=== PATIENT | female | born 1970 | race Caucasian/White ===

== ENCOUNTER 2020-01-30 08:14 | Outpatient (REF) | payer OTHER, SELFPAY | END 2020-01-30 08:15 | disposition home or self-care (01) | LOC: HO.SCI 08:14 | DX: Z13.89 Encounter for screening for other disorder (principal) ==

== ENCOUNTER → 2020-04-02 11:56 | Outpatient (BNVA) | payer OTHER, SELFPAY | PROVIDERS: PCP Registered Nurse; Visit Provider Physician Assistant | DX: Z76.89 Persons encountering health services in other specified circumstances (principal) ==

== ENCOUNTER 2020-05-02 08:00 | Day surgery (SDC) | payer OTHER, SELFPAY ==
[2020-04-28 13:02] VITALS: BMI 28.2
--- NOTE | 2020-05-01 09:09 | P.CONAN_ITS ---
Documented by User: Sigrid Avila 05/01/20 09:11 HPI - Anesthesia Eval Consult details Narrative: 50yo F for Colonoscopy [facility] Past Medical History Medical History DVT (deep venous thrombosis) Family history of adverse response to anesthesia in father Family History Family History Unknown No problems noted. Surgical History Surgical History Hx of shoulder surgery No significant past surgical history Social History Social History Household Members: Spouse Are you a primary daycare worker to a significant other at home: No Do you presently have visiting nurse or other home services: No Alcohol intake: never Smoking Status: Never smoker Use of substances other than those prescribed or required for medical reasons: No Have you been hit, kicked, punched, or otherwise hurt by someone within the past year? If so, by whom?: No Advance Directives: No Advance Directives Information Provided: No Advance Directives on File: No Recently lost weight without trying: No Current occupational status: unemployed Meds Allergies Allergy/AdvReac Type Severity Reaction Status Date / Time No Known Allergies Allergy Verified 05/02/20 08:13 Home Medications Medication Instructions Recorded Confirmed Type aspirin 81 mg tablet,delayed 81 mg PO DAILY 04/02/20 04/28/20 History release Exam Exam Date and Time: May 01, 2020 0909 Height,Weight and Vital Signs: Height 5 ft 5 in Weight 77 kg Assessment and Plan Assessment Anesthesia Assessment: Chart Reviewed Documented by User: Sally Fuentes CRNA 05/02/20 08:49 [facility] Past Medical History Medical History DVT (deep venous thrombosis) Family history of adverse response to anesthesia in father Family History Family History Unknown No problems noted. Surgical History Surgical History Hx of shoulder surgery No significant past surgical history Social History Social History Household Members: Spouse Are you a primary daycare worker to a significant other at home: No Do you presently have visiting nurse or other home services: No Alcohol intake: never Smoking Status: Never smoker Use of substances other than those prescribed or required for medical reasons: No Have you been hit, kicked, punched, or otherwise hurt by someone within the past year? If so, by whom?: No Advance Directives: No Advance Directives Information Provided: No Advance Directives on File: No Recently lost weight without trying: No Current occupational status: unemployed Meds Allergies Allergy/AdvReac Type Severity Reaction Status Date / Time No Known Allergies Allergy Verified 05/02/20 08:13 Home Medications Medication Instructions Recorded Confirmed Type aspirin 81 mg tablet,delayed 81 mg PO DAILY 04/02/20 04/28/20 History release Exam Exam Date and Time: Vital Signs Temperature 97.4 F 05/02/20 08:26 Pulse Rate 74 05/02/20 08:26 Respiratory Rate 16 05/02/20 08:26 Blood Pressure 134/80 05/02/20 08:26 Pulse Oximetry 99 05/02/20 08:26 Temperature 97.4 F 05/02/20 08:26 Pulse Rate 74 05/02/20 08:26 Respiratory Rate 16 05/02/20 08:26 Blood Pressure 134/80 05/02/20 08:26 Pulse Oximetry 99 05/02/20 08:26 Height,Weight and Vital Signs: Vital Signs Temperature 97.4 F 05/02/20 08:26 Pulse Rate 74 05/02/20 08:26 Respiratory Rate 16 05/02/20 08:26 Blood Pressure 134/80 05/02/20 08:26 Pulse Oximetry 99 05/02/20 08:26 Temperature 97.4 F 05/02/20 08:26 Pulse Rate 74 05/02/20 08:26 Respiratory Rate 16 05/02/20 08:26 Blood Pressure 134/80 05/02/20 08:26 Pulse Oximetry 99 05/02/20 08:26 Narrative Narrative: npo since 2am (clear liquids) Airway Mallampati Class: II TM Dist: >3cm Neck ROM: Full Loose/Missing/Broken Teeth: No Heart: rrr Lungs: ctab Assessment and Plan Assessment Anesthesia Assessment: Anesthesia Plan Discussed and Chart Reviewed Final Anesthetic Review NPO: Yes ASA Class: II Final Preanesthetic Review: No Changes in Pt Med Stat, Meds/Allgs Chart Reviewed, Consent Obtained/Reviewed and Anes Risks/Benef Reviewed Patient Risk: Low Procedure Risk: Low Anesthetic Plan Anesthetic Plan: MAC: and Regional Block Disposition: Standard PACU Documented by User: Amber Hilton 05/02/20 09:36 [facility] Past Medical History Medical History DVT (deep venous thrombosis) Family history of adverse response to anesthesia in father Family History Family History Unknown No problems noted. Surgical History Surgical History Hx of shoulder surgery No significant past surgical history Social History Social History Household Members: Spouse Are you a primary daycare worker to a significant other at home: No Do you presently have visiting nurse or other home services: No Alcohol intake: never Smoking Status: Never smoker Use of substances other than those prescribed or required for medical reasons: No Have you been hit, kicked, punched, or otherwise hurt by someone within the past year? If so, by whom?: No Advance Directives: No Advance Directives Information Provided: No Advance Directives on File: No Recently lost weight without trying: No Current occupational status: unemployed Meds Allergies Allergy/AdvReac Type Severity Reaction Status Date / Time No Known Allergies Allergy Verified 05/02/20 08:13 Home Medications Medication Instructions Recorded Confirmed Type aspirin 81 mg tablet,delayed 81 mg PO DAILY 04/02/20 04/28/20 History release Exam Height,Weight and Vital Signs: Vital Signs Temp Pulse Resp BP Pulse Ox 05/02/20 08:26 97.4 F 74 16 134/80 99
[2020-05-02 08:26] VITALS: BP 134/80; PULSE 74; RESP 16; TEMP 36.3; O2SAT 99
--- NOTE | 2020-05-02 08:48 | P.OP_ITS ---
Operative Note Operative Note Date of Service: 05/02/20 Narrative: Pre-op diagnosis: Colon cancer screening Post-op diagnosis: other (diverticulosis, hemorrhoids) Procedure: COLONOSCOPY TILL CECUM Consent: Indications for the procedure and potential complications of bleeding, perforation, reaction to medications and missed diagnosis were discussed with the patient and informed consent was obtained. Instrument: Olympus PCF H 190 L variable stiffness pediatric colonoscope Monitoring: Vital signs and clinical assessment, intermittent blood pressure monitoring, continuous EKG monitoring, Pulse oximetry and Carbon Dioxide monitoring were done throughout the procedure. Colon withdrawl time was 18 minutes. Procedure: The patient was placed in the left lateral decubitis position and pre-procedure medications were administered. After a digital rectal examination of the ano-rectum, the video colonoscope was inserted into the rectum and advanced through the colon to the cecum. The colonoscope was slowly withdrawn in a retrograde panoramic fashion and the colon mucosa was carefully examined including a retroflexed view of the rectum. Findings and interventions are described below. Procedure Difficulty: Without difficulty Findings: Terminal Ileum: Not evaluated Cecum: Normal Ascending Colon: Normal Transverse Colon: Normal Descending Colon: Normal Sigmoid Colon: Moderate diverticulosis Rectum: Normal Ano-rectum: Moderate internal hemorrhoids Colon preparation: Good after some irrigation Impression and Post Procedure Diagnosis: Colonoscopy Findings: No polyps were detected Moderate diverticulosis seen in the sigmoid colon Moderate hemorrhoids on retroflexed exam. Plan: Await pathology results Patient has an appointment on 05/29/20 in the GI [facility] with JAYLEN Orozco . Repeat Colonoscopy in 10 years. Above findings were reviewed with the patient and diverticulosis handout was given in the discharge area Surgeon: Nini Younger MD Anesthesia: MAC (SENIOR ARCHITECT/DESIGN MANAGER [facility]) Estimated blood loss (mL): 0 Pathology: none sent Condition: stable Disposition: PACU
--- NOTE | 2020-05-02 08:48 | MHC.SHP ---
Pre-Procedural Eval Section A The patient is an INPATIENT: No Changes since office visit: Yes Patient answered all questions; No Cold of Flu in the past 2 weeks, No New Medical Problems and No Changes in Medication The History & Physical has been completed within 30 days and I have reviewed it.: Yes Section B Chief Complaint: screening Allergies: Allergies Allergy/AdvReac Type Severity Reaction Status Date / Time No Known Allergies Allergy Verified 05/02/20 08:13 Plan I have reviewed the history and physical and performed a pertinent physical examination on my patient. No changes have occurred unless specified.
[2020-05-02] MEDS: Lactated Ringers 1,000 ML 20 ML IVCONT (08:53)
[2020-05-02 09:45] VITALS: BP 100/51; PULSE 77; RESP 16; TEMP 36.7; O2SAT 99
[2020-05-02 10:00] VITALS: BP 125/70; PULSE 73; RESP 18; TEMP 36.7; O2SAT 99
== END 2020-05-02 10:28 | disposition home or self-care (01) ==
PROVIDERS: PCP Registered Nurse; Visit Provider Internal Medicine Gastroenterology
PROC: 0DJD8ZZ Inspection of Lower Intestinal Tract, Via Natural or Artificial Opening Endoscopic (ICD-10-PCS; CPT 45378; principal; 2020-05-02 09:00)
DX: Z12.11 Encounter for screening for malignant neoplasm of colon (principal); K57.30 Diverticulosis of large intestine without perforation or abscess without bleeding; K64.8 Other hemorrhoids; Z86.718 Personal history of other venous thrombosis and embolism; Z79.82 Long term (current) use of aspirin
CPT/HCPCS: 45378; J3010

== ENCOUNTER 2020-05-09 10:22 | Outpatient (REF) | payer OTHER, SELFPAY ==
--- NOTE | 2020-05-09 | MM_ITS ---
EXAMINATION: MM SCREENING DIGITAL BREAST TOMOSYNTHESIS, BILATERAL CLINICAL INFORMATION: Screening. Asymptomatic. Prior mammography 2018 performed out of the country ([place]) and unavailable. No known family history breast cancer. Age 50. The lifetime risk of breast cancer based on the Tyrer-Cuzick Model is 12%. COMPARISON: None. TECHNIQUE: Digital breast tomosynthesis is performed in both the craniocaudal and mediolateral oblique views along with computer-aided detection (CAD). Synthesized 2D images are generated from the tomosynthesis. FINDINGS: The breasts are heterogeneously dense, which may obscure small masses (ACR BI-RADS breast composition Category c). There is no mass or architectural abnormality. The bilateral axilla and skin contours are unremarkable. There are grouped calcifications posterior outer right breast on CC view without clearly visible grouping on MLO projection. There are other isolated and small grouped calcifications in both breasts. Patient will be recalled to fully characterize the bilateral calcifications at this probably new baseline exam. MM/MM tomosynthesis screening BI IMPRESSION: Bilateral breast calcifications. Prior mammography out of the country and unavailable. ASSESSMENT: BI-RADS 0: Incomplete - Need Additional Imaging Evaluation RECOMMENDATION: 1. Additional bilateral magnification views (CC and ML) to include all quadrants each breast. 2. Radiology department staff will contact the patient for additional imaging. This patient's information was entered into a reminder system with a target due date for their next mammogram.
== END 2020-05-09 10:23 | disposition home or self-care (01) ==
LOC: HO.MAMMO 10:22
PROVIDERS: PCP Registered Nurse; Visit Provider Registered Nurse
DX: Z12.31 Encounter for screening mammogram for malignant neoplasm of breast (principal)
CPT/HCPCS: 77063; 77067

== ENCOUNTER 2020-05-17 09:35 | Outpatient (REF) | payer OTHER, SELFPAY ==
--- NOTE | 2020-05-17 09:43 | XR_ITS ---
EXAMINATION: XR LUMBOSACRAL SPINE WITH OBLIQUES CLINICAL INFORMATION: Low back pain. COMPARISON: None TECHNIQUE: AP, both oblique, and lateral views of the lumbar spine. Lateral view of the lumbosacral junction. FINDINGS: There is normal lumbar lordosis. The vertebral heights, alignment and disc heights are normal. There is no visible acute fracture, dislocation or lytic process seen. The paravertebral soft tissues are normal. XR/XR lumbar spine 4V min IMPRESSION: Unremarkable lumbar spine exam.
== END 2020-05-17 09:36 | disposition home or self-care (01) ==
LOC: HO.XRAY 09:35
PROVIDERS: Visit Provider Registered Nurse
DX: M54.5 Low back pain (principal)
CPT/HCPCS: 72110

== ENCOUNTER 2020-05-29 15:02 | Outpatient (REF) | payer OTHER, SELFPAY ==
--- NOTE | ~2020-05-29 | MM_ITS ---
EXAMINATION: MM DIAGNOSTIC DIGITAL MAMMOGRAPHY, BILATERAL CLINICAL INFORMATION: Bilateral calcifications. COMPARISON: Mammography: May 09, 2020 TECHNIQUE: Digital mammography is performed in the following views: Spot magnification views in craniocaudal and 90 degree mediolateral views. FINDINGS: The breasts are heterogeneously dense, which may obscure small masses (ACR BI-RADS breast composition Category c). There are diffusely scattered and grouped calcifications seen bilaterally. About the deep upper outer aspect of the right breast there is a separate grouping of calcifications without linear or branching forms. Within the deep lateral aspect of the left breast there is a grouping of calcifications without suspicious features. Recommend 6 month follow-up bilateral magnification views. Results are provided to the patient at time of visit by the technologist. MM/MM added views BI IMPRESSION: Probably benign bilateral calcifications. ASSESSMENT: BI-RADS 3: Probably Benign RECOMMENDATION: Diagnostic mammography in 6 months. This patient's information was entered into a reminder system with a target due date for their next mammogram.
== END 2020-05-29 15:03 | disposition home or self-care (01) ==
LOC: HO.MAMMO 15:02
PROVIDERS: PCP Registered Nurse; Visit Provider Registered Nurse
DX: R92.1 Mammographic calcification found on diagnostic imaging of breast (principal)
CPT/HCPCS: 77066

== ENCOUNTER → 2020-06-04 08:36 | Outpatient (BNVA) | payer OTHER, SELFPAY | PROVIDERS: PCP Registered Nurse; Visit Provider Physician Assistant ==

== ENCOUNTER 2020-08-18 16:01 | Outpatient (REF) | payer OTHER, SELFPAY ==
--- NOTE | ~2020-08-18 | US_ITS ---
EXAMINATION: US VENOUS ULTRASOUND WITH DOPPLER LOWER EXTREMITY, RIGHT CLINICAL INFORMATION: 5 pain COMPARISON: None TECHNIQUE: Ultrasound of the deep veins is performed from the hip to the calf with compression sonography and color and pulse Doppler assessment. Spectral analysis with color-flow imaging is performed. FINDINGS: There is normal venous compression and respiratory variation and augmented flow. The visualized common femoral vein, superficial femoral vein, profunda femoral vein, popliteal vein, and the trifurcation region shows no evidence of deep venous thrombosis. There is no popliteal fossa cyst. US/US venous duplex LE RT IMPRESSION: No DVT demonstrated in the right lower extremity.
== END 2020-08-18 16:02 | disposition home or self-care (01) ==
LOC: HO.US 16:01
PROVIDERS: PCP Registered Nurse; Visit Provider Registered Nurse
DX: I82.509 Chronic embolism and thrombosis of unspecified deep veins of unspecified lower extremity (principal); M79.651 Pain in right thigh
CPT/HCPCS: 93971

== ENCOUNTER 2020-11-26 14:24 | Outpatient (REF) | payer OTHER, SELFPAY ==
--- NOTE | ~2020-11-26 | MM_ITS ---
EXAMINATION: MM DIAGNOSTIC DIGITAL BREAST TOMOSYNTHESIS, BILATERAL US DIAGNOSTIC ULTRASOUND BREAST, LEFT CLINICAL INFORMATION: Short interval six-month follow-up probable benign grouped calcifications left breast mid upper outer quadrant and right breast posterior outer quadrant. Remote prior mammography 2018 performed out of the country (less than on). No known family history breast cancer. The lifetime risk of breast cancer based on the Tyrer-Cuzick Model is 12%. COMPARISON: Mammography: 05/29/2020, 05/09/2020 (new baseline, BI-RADS 0). TECHNIQUE: Digital breast tomosynthesis is performed in both the craniocaudal and mediolateral oblique views along with computer-aided detection (CAD). Synthesized 2D images are generated from the tomosynthesis. Additional spot left CC and spot left MLO views are obtained. In addition, magnification views are obtained: Right CC, right ML x2, left CC x2, left ML x2. Ultrasound left breast is targeted to the anterior upper and outer breast. Grayscale imaging and color Doppler are performed without and with harmonics. FINDINGS: The breasts are heterogeneously dense, which may obscure small masses (ACR BI-RADS breast composition Category c). Calcifications posterior 9:00 right breast for follow-up surveillance are stable from prior diagnostic exam. The calcifications are tightly grouped and punctate. No increasing calcifications. These may be reassessed again in 6 months. Calcifications mid upper outer left breast for follow-up surveillance are stable from prior diagnostic exam. The calcifications are tightly grouped and punctate, lesser in number than that on the right. No increasing calcifications. These may be reassessed again in 6 months. The right breast parenchymal pattern is similar to prior study. There is no interval mass or architectural abnormality. Left breast has subtle architectural changes on tomography anterior periareolar upper outer quadrant. This is confirmed on the additional 3-D spot views. Left breast ultrasound demonstrates subtle architectural change retroareolar 1:00 position with associated from posterior shadowing at this site. This most likely corresponds to the architectural changes on mammography. Ultrasound-guided core sampling is recommended. Results are discussed with the patient at time of visit. Ultrasound-guided core sampling of the left architectural changes is recommended. [facility] navigation staff to call report and recommendations in AM. MM/MM tomosynthesis diagnostic BI IMPRESSION: Left: -Focal architectural distortion subareolar breast with ultrasound correlate. -Tightly grouped calcifications for follow up surveillance stable. Right: -Tightly grouped calcifications for follow up surveillance stable. ASSESSMENT: BI-RADS 4: Suspicious RECOMMENDATION: Ultrasound-guided core biopsy subtle architectural changes anterior left breast. This patient's information was entered into a reminder system with a target due date for their next mammogram.
== END 2020-11-26 14:25 | disposition home or self-care (01) ==
LOC: HO.MAMMO 14:24
PROVIDERS: Visit Provider Registered Nurse
DX: R92.1 Mammographic calcification found on diagnostic imaging of breast (principal); N64.89 Other specified disorders of breast
CPT/HCPCS: 76642; 77062; 77066

== ENCOUNTER → 2020-11-27 10:32 | Outpatient (BNV) | payer MEDICAID, OTHER, SELFPAY | PROVIDERS: PCP Registered Nurse; Referring Provider Registered Nurse; Visit Provider Internal Medicine Medical Oncology | DX: C50.912 Malignant neoplasm of unspecified site of left female breast (principal); Z86.718 Personal history of other venous thrombosis and embolism; D64.9 Anemia, unspecified | CPT/HCPCS: 99204; 99213; 99214 ==

== ENCOUNTER → 2020-12-26 08:38 | Outpatient (BNVA) | payer OTHER, SELFPAY | PROVIDERS: PCP Registered Nurse; Referring Provider Internal Medicine Medical Oncology; Visit Provider Surgery | DX: C50.912 Malignant neoplasm of unspecified site of left female breast (principal) | CPT/HCPCS: 99202 ==

== ENCOUNTER 2020-12-31 07:08 | Day surgery (SDC) | payer OTHER, SELFPAY ==
--- NOTE | 2020-12-30 09:38 | HO.ANESPROP2 ---
Documented by User: Sigrid vAila NP 12/30/20 09:39 HPI - Anesthesia Eval Consult details Narrative: 50yo F for Left Sentinal Node Biopsy, Breast Biopsy Needle Localization, Breast Lumpectomy s/p [place] with TIVA 04/2020 [facility] Active Problems Active Problems: All Active Problems (Updated 12/26/20 @ 11:59 by Shan Ayers MD) Invasive ductal carcinoma of left breast (Acute) Encounter for screening colonoscopy (Acute) Diverticulosis of colon (Acute) Internal hemorrhoids (Acute) Left leg DVT (Acute) Abnormal mammogram of left breast (Acute) Past Medical History Medical History DVT (deep venous thrombosis) Family history of adverse response to anesthesia in father Internal hemorrhoids Family History Family History Unknown No problems noted. Paternal Grandmother Diabetes Maternal Grandmother Diabetes Maternal Aunt Breast cancer Surgical History Surgical History Hx of shoulder surgery No significant past surgical history Social History Social History Household Members: Spouse Are you a primary care program resident to a significant other at home: No Do you presently have visiting nurse or other home services: No Alcohol intake: never Patient Tobacco Use Status: Never used Tobacco Second Hand Smoke Exposure: No Use of substances other than those prescribed or required for medical reasons: No Are you DNR?: No Advance Directives: No Advance Directives Information Provided: Yes Advance Directives on File: No Current occupational status: unemployed Meds Allergies Allergy/AdvReac Type Severity Reaction Status Date / Time No Known Allergies Allergy Verified 11/28/20 11:54 Home Medications Medication Instructions Recorded Confirmed Last Taken Type aspirin 81 mg tablet,delayed 81 mg PO DAILY 04/02/20 11/27/20 Unknown History release (Aspirin Low Dose) Exam Exam Date and Time: December 30, 2020 0938 Pertinent Lab Results Pertinent Lab Results: Laboratory Tests 11/27/20 11/27/20 11:52 11:52 WBC 8.0 Hgb 12.4 Hct 38.1 Plt Count 276 Sodium 139 Potassium 4.3 Chloride 106 Carbon Dioxide 26 BUN 13 Creatinine 0.81 Assessment and Plan Assessment Anesthesia Assessment: Chart Reviewed Documented by User: Amber Hilton MD 12/31/20 12:22 [facility] Past Medical History Medical History DVT (deep venous thrombosis) Family history of adverse response to anesthesia in father Internal hemorrhoids Family History Family History Unknown No problems noted. Paternal Grandmother Diabetes Maternal Grandmother Diabetes Maternal Aunt Breast cancer Family history of problems with anesthesia: No Surgical History Surgical History Hx of shoulder surgery No significant past surgical history History of Problems with Anesthesia: No Social History Social History Household Members: Spouse Are you a primary care program resident to a significant other at home: No Do you presently have visiting nurse or other home services: No Alcohol intake: never Patient Tobacco Use Status: Never used Tobacco Second Hand Smoke Exposure: No Use of substances other than those prescribed or required for medical reasons: No Are you DNR?: No Advance Directives: No Advance Directives Information Provided: Yes Advance Directives on File: No Current occupational status: unemployed Meds Allergies Allergy/AdvReac Type Severity Reaction Status Date / Time No Known Allergies Allergy Verified 11/28/20 11:54 Home Medications Medication Instructions Recorded Confirmed Last Taken Type aspirin 81 mg tablet,delayed 81 mg PO DAILY 04/02/20 11/27/20 Unknown History release (Aspirin Low Dose) Exam Height,Weight and Vital Signs: Height 5 ft 5 in Weight 76.657 kg Vital Signs Temp Pulse Resp BP Pulse Ox 12/31/20 07:30 97.4 F 75 16 138/90 H 97 Airway Mallampati Class: II TM Dist: >3cm Neck ROM: Full Loose/Missing/Broken Teeth: Yes (Extraction) Heart: RRR Lungs: CTAB Assessment and Plan Assessment Anesthesia Assessment: Anesthesia Plan Discussed Final Anesthetic Review Family History of Problems with Anesthesia: No History of Problems with Anesthesia: No NPO: Yes ASA Class: II Final Preanesthetic Review: No Changes in Pt Med Stat, Meds/Allgs Chart Reviewed, Consent Obtained/Reviewed and Anes Risks/Benef Reviewed Patient Risk: Low Procedure Risk: Low Assessment/Block/Sedation in SS: Assess/Block/Sedation-SS Anesthetic Plan Anesthetic Plan: GA Disposition: Standard PACU
[2020-12-31] VITALS (12 sets, daily range): BP systolic 122–138; BP diastolic 77–90; PULSE 75–89; RESP 12–18; TEMP 36.3–37.2; O2SAT 93–97; BMI 28.1
--- NOTE | ~2020-12-31 | NM_ITS ---
EXAMINATION: NM LYMPH SCINTIGRAPHY CLINICAL INFORMATION: Left breast intraductal carcinoma. COMPARISON: None TECHNIQUE: Following explaining left breast sentinel node procedure, benefits and risks by Dr. Wang, a written consent was obtained. 4% lidocaine green was applied around the left breast areola half an hour prior to the sentinel node procedure. Patient was placed supine on the stretcher. The area around the left breast areola was cleaned and draped in the usual sterile manner. 0.5 mCi of technetium 99m tilmanocept divided in 4 equal doses was injected in 4 quadrants around the left breast areola. Imaging was obtained approximately 30 minutes later. Patient tolerated procedure extremely well. FINDINGS: There is isotope activity in the 4 quadrants around the left breast areola. There is a solitary sentinel node seen in the left anterior axilla. No additional abnormal activity seen. NM/NM sentinel node w imaging IMPRESSION: Solitary sentinel node left anterior axilla on left breast sentinel node exam.
--- NOTE | ~2020-12-31 | MM_ITS ---
EXAMINATION: MM MAMMOGRAM GUIDED NEEDLE LOCALIZATION BREAST, LEFT MM NEEDLE LOCALIZATION SPECIMEN FROM THE LEFT BREAST CLINICAL INFORMATION: Left breast malignancy COMPARISON: December 12, 2020 and November 26, 2020 TECHNIQUE NEEDLE LOC: Proper informed consent is obtained from the patient after discussion of the procedure, potential risks and complications, and alternatives including declining the procedure today. Patient was given an opportunity for questions. The patient appeared to understand. The patient consented to the procedure and signed the consent form. GUIDANCE: Digital mammography. APPROACH: Lateral. TARGET: Marking clip. ANESTHESIA: lidocaine 1%: 8 mL. LOCALIZATION MARKER: Ribbon clip. 7 cm needle used for localization. The skin is prepped and local anesthesia administered. The needle is positioned and position assessed with mammography. The wire is hooked into position. Balko needle protector placed. The patient tolerated the procedure well and had no immediate complication. Following the procedure, 4% lidocaine ointment was administered to the left areola and covered with Tegaderm in anticipation of nuclear lymphoscintigraphy injection for sentinel lymph node mapping. TECHNIQUE SPECIMEN RADIOGRAPH: Imaging of the excised specimen is performed using digital mammography in 3 views. FINDINGS SPECIMEN RADIOGRAPH: The specimen shows the needle and hookwire are delivered intact. The biopsy clip is identified in the specimen. Results were called to Dr. Shan Ayers in the operating room at the time of imaging. MM/MM needle loc LT IMPRESSION: 1. Status post left breast needle localization with wire hooked into position. 2. Post operative specimen radiograph obtained.
--- NOTE | 2020-12-31 07:25 | MHC.SHP ---
Pre-Procedural Eval Section A Date of Service: 12/31/20 The patient is an INPATIENT: No Changes since office visit: Yes Patient answered all questions; No Cold of Flu in the past 2 weeks, No New Medical Problems and No Changes in Medication The History & Physical has been completed within 30 days and I have reviewed it.: Yes Section B Chief Complaint: Intraductal carcinoma in situ of left breast Allergies: Allergies Allergy/AdvReac Type Severity Reaction Status Date / Time No Known Allergies Allergy Verified 11/28/20 11:54 Plan Diagnosis/Plan: Unchanged I have reviewed the history and physical and performed a pertinent physical examination on my patient. No changes have occurred unless specified.
[2020-12-31] MEDS: Lactated Ringers 1,000 ML 100 ML IVCONT (12:21)
--- NOTE | 2020-12-31 14:17 | W.PM.OPN ---
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 This revealed a left breast invasive ductal carcinoma with ductal carcinoma in situ. She presents today for lumpectomy with sentinel node biopsy. Operative findings: Lumpectomy contain the biopsy cavity with marking clip. Two sentinel nodes were identified Specimen: 1. Lumpectomy left breast, 2. Green[place] node 1., 2. [place] node 2, 3. Additional axillary contents Estimated blood loss: 20 mL Complications: None Procedure details: Patient was brought to the OR placed in a supine position. After administering general anesthesia the patient's left breast and axilla was prepped with ChloraPrep and draped in a sterile fashion. A surgical time-out was called the consent confirmed. Patient received preoperative antibiotics and Venodyne boots were in place. Local anesthesia consisting of 0.5% Sensorcaine with epinephrine was infiltrated in the periareolar location at the top of the nipple-areolar complex. A curvilinear incision was then made with scalpel. The localizing needle was located in the 3 o'clock position and coursed medially and slightly superior below the nipple-areolar complex. Core of tissue surrounding this needle was then excised using electrocautery. Dissection began with the superior and inferior skin flaps. Superior margin was then created with electrocautery. This was followed by the medial margin inferior margin and then lateral margin. The lesion was then excised off the chest wall. Specimens sent to pathology. Specimen x-ray confirmed the marking clip within the specimen. Pathology confirmed marking clip and biopsy cavity within the specimen. After assuring adequate hemostasis attention was then directed to the left axilla. Using the gamma probe with area of increased activity was noted in the lower axillary compartment. A curvilinear incision was made below the hairline in the axilla. This was carried out through subcutaneous tissue past clavipectoral fascia into the axillary compartment. Again guided by the gamma probe the area of increased activity was identified. This was grasped using a Allis clamp. Electrocautery was then used to dissect around the area of radio activity. This was removed and found to contain a small lymph node. This was sent as sentinel node 1. Additional scanning revealed an area of light radio activity within the axilla. Another node was palpable and grasped with an Allis clamp. This was then dissected free using electrocautery. This contained a low level of radio activity. Examination of the remaining axillary compartment revealed no other palpable masses or enlarged lymph nodes. No other radio activity could be identified. Blue dye was not used. After assuring adequate hemostasis the clavipectoral fascia was reapproximated using interrupted 3-0 Polysorb sutures. Dermis was reapproximated using interrupted 3-0 Polysorb sutures. Skin was then closed using a running subcuticular 4-0 Polysorb suture. The deep breast tissue was then closed using interrupted 3-0 Polysorb sutures. Superficial breast tissue was also closed using interrupted 3-0 Polysorb sutures. Dermis was reapproximated using interrupted 3-0 Polysorb sutures. Skin was then closed using a running subcuticular 4-0 Polysorb suture. Steri-Strips 2 x 2 gauze and Tegaderm were then applied. The patient tolerated the procedure well. Sponge, instrument, and needle counts were reported as correct. The patient was transferred to PACU in stable condition. Breast [place] Node Biopsy Substrate(s) used for sentinel node biopsy in the non-neoadjuvant setting: Radiotracer Substrate(s) used for sentinel node biopsy in the neoadjuvant setting: N/A All colored nodes or non-colored nodes present at the end of a dye filled lymphatic channel were removed, if dye was used as the substrate for localization: N/A All significantly radioactive nodes were removed, if radionuclide was used as the substrate for localization: Yes All palpably suspicious nodes were removed, if present: Yes If clips were placed in pathology-involved nodes, those nodes were identified and removed: N/A General Surg. - Synoptic Notes Breast [place] Node Biopsy Substrate(s) used for sentinel node biopsy in the non-neoadjuvant setting: Radiotracer Substrate(s) used for sentinel node biopsy in the neoadjuvant setting: N/A All colored nodes or non-colored nodes present at the end of a dye filled lymphatic channel were removed, if dye was used as the substrate for localization: N/A All significantly radioactive nodes were removed, if radionuclide was used as the substrate for localization: Yes All palpably suspicious nodes were removed, if present: Yes If clips were placed in pathology-involved nodes, those nodes were identified and removed: N/A
[2020-12-31] MEDS: fentaNYL citrate/PF 100 MCG/2 ML VIAL 25 MCG IVPUSH ×2 (14:38→14:43)
[2020-12-31] MEDS: Acetaminophen 325 MG TABLET 650 MG PO (14:43)
[2020-12-31] MEDS: oxyCODONE HCl Immed Release 5 MG TABLET PO (14:43)
[2020-12-31] MEDS: ondansetron HCL 4 MG/2 ML VIAL IVPUSH (15:57)
== END 2020-12-31 16:32 | disposition home or self-care (01) ==
PROVIDERS: PCP Registered Nurse; Visit Provider Surgery
PROC: (CPT 19301; principal; 2020-12-31 11:50)
PROC: (CPT 19301; 2020-12-31 11:50)
DX: C50.912 Malignant neoplasm of unspecified site of left female breast (principal); Z17.0 Estrogen receptor positive status [ER+]; Z86.718 Personal history of other venous thrombosis and embolism; Z79.82 Long term (current) use of aspirin
CPT/HCPCS: 19301; 38525; 19281; 78195; 88305; 88307; 88329; 88341; 88342; A4648; A9520; J0690; J1100; J1170; J1885; J2250; J2405; J3010

== ENCOUNTER → 2021-01-06 09:51 | Outpatient (BNVA) | payer OTHER, SELFPAY | PROVIDERS: PCP Registered Nurse; Visit Provider Surgery | DX: C50.912 Malignant neoplasm of unspecified site of left female breast (principal) | CPT/HCPCS: 99212 ==

== ENCOUNTER → 2021-01-08 14:02 | Outpatient (BNVA) | payer OTHER, SELFPAY | PROVIDERS: PCP Registered Nurse; Visit Provider Surgery | DX: C50.912 Malignant neoplasm of unspecified site of left female breast (principal) | CPT/HCPCS: 99212 ==

== ENCOUNTER 2021-01-12 11:11 | Day surgery (SDC) | payer OTHER, SELFPAY ==
--- NOTE | 2021-01-09 13:04 | HO.ANESPROP2 ---
Documented by User: Sigrid Avila NP 01/09/21 13:05 HPI - Anesthesia Eval Consult details Narrative: 50yo F for Left Wide Excision of Breast Cancer s/p lumpectomy 12/31/20 with GA-LMA 4 PMFSH Active Problems Active Problems: All Active Problems (Updated 01/04/21 @ 18:35 by Aurora Sparks MD) Invasive ductal carcinoma of left breast (Acute) Encounter for screening colonoscopy (Acute) Diverticulosis of colon (Acute) Internal hemorrhoids (Acute) Left leg DVT (Acute) Abnormal mammogram of left breast (Acute) Past Medical History Medical History DVT (deep venous thrombosis) Family history of adverse response to anesthesia in father Internal hemorrhoids Family History Family History Unknown No problems noted. Paternal Grandmother Diabetes Maternal Grandmother Diabetes Maternal Aunt Breast cancer Family history of problems with anesthesia: No Surgical History Surgical History (Updated 01/12/21 @ 11:24 by Rachael Whittington RN) History of lumpectomy of left breast Hx of shoulder surgery History of Problems with Anesthesia: No Social History Social History Household Members: Spouse Are you a primary child care provider to a significant other at home: No Do you presently have visiting nurse or other home services: No Alcohol intake: never Patient Tobacco Use Status: Never used Tobacco Second Hand Smoke Exposure: No Use of substances other than those prescribed or required for medical reasons: No Are you DNR?: No Advance Directives: No Advance Directives Information Provided: Yes Current occupational status: unemployed Meds Allergies Allergy/AdvReac Type Severity Reaction Status Date / Time No Known Allergies Allergy Verified 01/12/21 11:19 Home Medications Medication Instructions Recorded Confirmed Last Taken Type aspirin 81 mg tablet,delayed 81 mg PO DAILY 04/02/20 11/27/20 01/08/21 09:00 History release (Aspirin Low Dose) Exam Exam Date and Time: January 09, 2021 1304 Pertinent Lab Results Pertinent Lab Results: Laboratory Tests ? 11/27/20 11/27/20 ? 11:52 11:52 WBC ?8.0 ? Hgb ?12.4 ? Hct ?38.1 ? Plt Count ?276 ? Sodium ? ?139 Potassium ? ?4.3 Chloride ? ?106 Carbon Dioxide ? ?26 BUN ? ?13 Creatinine ? ?0.81 Assessment and Plan Assessment Anesthesia Assessment: Chart Reviewed Final Anesthetic Review Family History of Problems with Anesthesia: No History of Problems with Anesthesia: No Documented by User: Gómez Connelly MD 01/12/21 12:02 [facility] [place] Past Medical History Medical History DVT (deep venous thrombosis) Family history of adverse response to anesthesia in father Internal hemorrhoids Family History Family History Unknown No problems noted. Paternal Grandmother Diabetes Maternal Grandmother Diabetes Maternal Aunt Breast cancer Surgical History Surgical History (Updated 01/12/21 @ 11:24 by Rachael Whittington RN) History of lumpectomy of left breast Hx of shoulder surgery Social History Social History Household Members: Spouse Are you a primary child care provider to a significant other at home: No Do you presently have visiting nurse or other home services: No Alcohol intake: never Patient Tobacco Use Status: Never used Tobacco Second Hand Smoke Exposure: No Use of substances other than those prescribed or required for medical reasons: No Are you DNR?: No Advance Directives: No Advance Directives Information Provided: Yes Current occupational status: unemployed Meds Allergies Allergy/AdvReac Type Severity Reaction Status Date / Time No Known Allergies Allergy Verified 01/12/21 11:19 Home Medications Medication Instructions Recorded Confirmed Last Taken Type aspirin 81 mg tablet,delayed 81 mg PO DAILY 04/02/20 11/27/20 01/08/21 09:00 History release (Aspirin Low Dose) Exam Airway Mallampati Class: II TM Dist: >3cm Neck ROM: Full Loose/Missing/Broken Teeth: No Heart: [id number] Lungs: cta b/l Assessment and Plan Assessment Anesthesia Assessment: Anesthesia Plan Discussed Final Anesthetic Review NPO: Yes ASA Class: III Final Preanesthetic Review: No Changes in Pt Med Stat, Meds/Allgs Chart Reviewed, Consent Obtained/Reviewed and Anes Risks/Benef Reviewed Patient Risk: Intermediate Procedure Risk: Low Assessment/Block/Sedation in SS: Assess/Block/Sedation-SS Anesthetic Plan Anesthetic Plan: MAC: and Agree w/ Assess. and Plan Disposition: Standard PACU
[2021-01-12] VITALS (11 sets, daily range): BP systolic 116–138; BP diastolic 77–87; PULSE 64–82; RESP 16–18; TEMP 36.4–36.8; O2SAT 96–99; BMI 27.4
[2021-01-12] MEDS: Lactated Ringers 1,000 ML 100 ML IVCONT (11:50)
--- NOTE | 2021-01-12 11:52 | MHC.SHP ---
Pre-Procedural Eval Section A Date of Service: 01/12/21 The patient is an INPATIENT: No Changes since office visit: Yes Patient answered all questions; No Cold of Flu in the past 2 weeks, No New Medical Problems and No Changes in Medication The History & Physical has been completed within 30 days and I have reviewed it.: Yes Section B Chief Complaint: Intraductal carcinoma in situ of left breast Allergies: Allergies Allergy/AdvReac Type Severity Reaction Status Date / Time No Known Allergies Allergy Verified 01/12/21 11:19 Plan Diagnosis/Plan: Unchanged I have reviewed the history and physical and performed a pertinent physical examination on my patient. No changes have occurred unless specified.
--- NOTE | 2021-01-12 13:51 | P.OP_ITS ---
Operative Note Operative Note Date of Service: 01/12/21 Narrative: Preoperative diagnosis: Invasive ductal carcinoma left breast, ductal carcinoma in situ left breast, positive superior margin for DCIS Postoperative diagnosis: Same Procedure: Wide excision left breast ductal carcinoma in situ Surgeon: Shan Ayers MD [employer] Machine Set Up Mechanic: Leida Burnett PA-C Anesthesia: General LMA Indications for procedure: 50-year-old female patient returning for wide local excision of a left breast carcinoma. The initial needle localization with lumpectomy and sentinel node biopsy revealed a negative margin for invasive carcinoma but positive margin for ductal carcinoma in situ at the superior margin. She returns today for wide excision. Operative findings: Circumareolar incision in the left breast in the upper quadrants. Seroma within the breast tissue. Specimen marked with 1 single long suture in the anterior margin, loop suture in the posterior margin, short suture on the superior margin and 2 long sutures in the lateral margin Specimen: Left breast lumpectomy Estimated blood loss: 20 mL Complications: None Procedure details: Patient was brought to the OR placed in a supine position. After administering general anesthesia the patient's left breast was prepped with ChloraPrep and draped in a sterile fashion. A surgical time-out was called the consent confirmed. Patient received preoperative antibiotics and Venodyne boots were in place. Local anesthesia consisting of 0.5% Sensorcaine plain was infiltrated around the previous incision in the left breast. Curvilinear incision was made around the nipple over the same incision. This carried out through subcutaneous tissue. Superior and inferior skin flaps were then created with electrocautery. A core of tissue surrounding the previous excision site was then excise using a combination of sharp and electrocautery dissection. Hemostasis was assured using electrocautery. Specimen was removed and sent to pathology for further examination. It was marked as noted above. Breast tissue was mobilized below the skin both superiorly and inferiorly. Wounds were irrigated with saline solution suctioned dry. Wounds were again checked for hemostasis. Additional local anesthesia was infiltrated at this time. Deep breast tissue was reapproximated using interrupted 3-0 Polysorb sutures. Superficial breast tissue was also reapproximated using interrupted 3-0 Polysorb sutures. Dermis was reapproximated using interrupted 3-0 Polysorb sutures. Skin was then closed using a running subcuticular 4-0 Polysorb suture. Steri- Strips 2 x 2 gauze and Tegaderm were then applied. The patient tolerated the procedure well. Sponge, instrument, needle counts were reported as correct. The patient was transferred to PACU in stable condition.
[2021-01-12] MEDS: HYDROmorphone HCl 0.5 MG/0.5 ML SYRINGE 0.25 MG IVPUSH ×2 (14:02→14:13)
[2021-01-12] MEDS: Acetaminophen 325 MG TABLET 650 MG PO (14:23)
== END 2021-01-12 15:27 | disposition home or self-care (01) ==
PROVIDERS: PCP Registered Nurse; Visit Provider Surgery
PROC: (CPT 19301; principal; 2021-01-12 12:30)
DX: C50.912 Malignant neoplasm of unspecified site of left female breast (principal)
CPT/HCPCS: 19301; 88307; 88329; J0690; J1100; J1170; J2250; J2405; J3010

== ENCOUNTER 2021-01-20 13:42 | Outpatient (REF) | payer OTHER, SELFPAY ==
--- NOTE | ~2021-01-20 | MM_ITS ---
EXAMINATION: BONE DENSITOMETRY CLINICAL INDICATION: Breast cancer, to decide about choice of agent. COMPARISON: None (current study represents initial baseline exam). TECHNIQUE: Using a [employer]lympse DXA System (software version: 13.1) manufactured by [employer], dual-energy x-ray absorptiometry was performed of the lumbar spine and left hip. The images are of good technical quality. Summary results are attached. FINDINGS: AP SPINE L1-L4: BMD 1.120 g/cm2, Z-score -0.3, T-score -0.5, normal. LEFT FEMUR, NECK: BMD 0.779 g/cm2, Z-score -1.2, T-score -1.9, osteopenia. LEFT FEMUR, TOTAL: BMD 0.762 g/cm2, Z-score -1.7, T-score -1.9, osteopenia. IDENTIFIED RISK FACTORS: Family history (parental hip fracture). HISTORY OF FRACTURE: Shoulder/humerus. MEDICATIONS: None listed. MM/XR DEXA axial skeleton IMPRESSION: 1. DIAGNOSIS: Osteopenia based on the lowest T-score value of -1.9 in the femoral neck and total femur applying World Health Organization criteria. 2. 10-YEAR FRACTURE RISK PREDICTION, FRAX: Major osteoporotic fracture (clinical spine, forearm, hip or shoulder) 6.7%. Hip fracture 0.4%. 3. Treatment Recommendations: NOF guidelines recommend consideration for treatment in postmenopausal women and men age 50 and older presenting with the following: -A hip or vertebral (clinical or morphometric) fracture. -T-score less than or equal to -2.5 at the femoral neck or spine after appropriate evaluation to exclude secondary causes. -Low bone mass at the hip or spine and a 10-year fracture probability by FRAX of greater than or equal to 3% for hip fracture or greater than or equal to 20% for major osteoporotic fracture based on the [place] adapted WHO algorithm. 4. Other Recommendations: All treatment decisions require clinical judgment and consideration of individual patient factors, including patient preferences, comorbidities, previous drug use, risk factors not captured in the FRAX model (e.g. frailty, falls, vitamin D deficiency, increased bone turnover, interval significant decline in bone density) and possible under or overestimation of fracture risk by FRAX. Additional medical evaluation for secondary cause of low bone mineral density may be appropriate. FUTURE SCAN RECOMMENDATION: People with diagnosed cases of osteoporosis or at high risk for fracture should have regular bone mineral density tests. For patients eligible for Medicare, routine testing is allowed once every 2 years. The testing frequency can be increased to one year for patients who have rapidly progressing disease, those who are receiving or discontinuing medical therapy to restore bone mass, or have additional risk factors.
== END 2021-01-20 13:43 | disposition home or self-care (01) ==
LOC: HO.MAMMO 13:42
PROVIDERS: Visit Provider Internal Medicine Medical Oncology
DX: Z13.820 Encounter for screening for osteoporosis (principal); M85.80 Other specified disorders of bone density and structure, unspecified site; Z87.81 Personal history of (healed) traumatic fracture
CPT/HCPCS: 77080

== ENCOUNTER → 2021-01-23 09:06 | Outpatient (BNVA) | payer OTHER, SELFPAY ==
--- NOTE | 2021-01-23 16:14 | MHC.HEMONC ---
Patient called, she states she will start Radiation March 02- Dr. Sparks updated. Patient can start over the counter Vitamin D 2000mg daily.
== END ==
PROVIDERS: PCP Registered Nurse; Referring Provider Registered Nurse; Visit Provider Surgery
DX: D05.12 Intraductal carcinoma in situ of left breast (principal); C50.912 Malignant neoplasm of unspecified site of left female breast
CPT/HCPCS: 99212

== ENCOUNTER → 2021-04-28 09:10 | Outpatient (BNVA) | payer OTHER, SELFPAY | PROVIDERS: PCP Registered Nurse; Referring Provider Registered Nurse; Visit Provider Surgery | DX: Z48.3 Aftercare following surgery for neoplasm (principal); D05.12 Intraductal carcinoma in situ of left breast | CPT/HCPCS: 99212 ==

== ENCOUNTER → 2021-07-28 14:47 | Outpatient (BNVA) | payer OTHER, SELFPAY | PROVIDERS: PCP Registered Nurse; Referring Provider Nurse Practitioner Primary Care; Visit Provider Surgery | DX: Z48.3 Aftercare following surgery for neoplasm (principal); D05.12 Intraductal carcinoma in situ of left breast | CPT/HCPCS: 99212 ==

== ENCOUNTER 2021-08-18 14:07 | Outpatient (REF) | payer OTHER, SELFPAY ==
--- NOTE | ~2021-08-18 | US_ITS ---
EXAMINATION: US VENOUS ULTRASOUND WITH DOPPLER LOWER EXTREMITY, LEFT CLINICAL INFORMATION: Left leg swelling. COMPARISON: None TECHNIQUE: Ultrasound of the deep veins is performed from the hip to the calf with compression sonography and color and pulse Doppler assessment. Spectral analysis with color-flow imaging is performed. FINDINGS: There is normal venous compression and respiratory variation and augmented flow. The visualized common femoral vein, superficial femoral vein, profunda femoral vein, popliteal vein, and the trifurcation region shows no evidence of deep venous thrombosis. No left popliteal cyst. The subcutaneous soft tissues are unremarkable. If the patient's symptoms persist, followup ultrasound in 5 days 7 days might be of value to exclude proximal propagation from a non-visualized calf vein. US/US venous duplex LE LT IMPRESSION: No evidence for deep venous thrombosis in the visualized veins of the left lower extremity.
== END 2021-08-18 14:08 | disposition home or self-care (01) ==
LOC: HO.US 14:07
PROVIDERS: PCP Internal Medicine; Visit Provider Internal Medicine
DX: R60.0 Localized edema (principal); M79.89 Other specified soft tissue disorders
CPT/HCPCS: 93971

== ENCOUNTER → 2021-09-04 08:34 | Outpatient (REF) | payer OTHER, SELFPAY ==
--- NOTE | 2021-09-04 08:37 | CA_ITS ---
Transthoracic Echocardiogram Patient (Last, First, Middle): Keely Foy, Gender: Female Date of : 1970 Age: 51 Procedure Date: 09/04/2021 Procedure Type: Transthoracic Echocardiogram Location: OP Height: 165.1 cm Weight: 68.01 kg BSA: 1.75 m2 Heart Rate: bpm BP: 132 / 70 mmHg Executor Of Estate: JOSEPH Palacios MD: Maycol Luevano MD Symptoms: R06.00 DYSPNEA Study Quality: Fair/contrast ECG Rhythm: Sinus Conclusions: - The left ventricular systolic function is normal. The calculated ejection fraction is 62% by biplane method. - No obvious valvular pathology seen on this study. Findings Procedure Information Contrast agent, definity, is being given per protocol without apparent complications. Left Ventricle Normal left ventricular cavity size. There is normal left ventricular wall thickness. The left ventricular systolic function is normal. The calculated ejection fraction is 62% by biplane method. There is no evidence of regional wall motion abnormalities. Diastolic function is normal for age. Right Ventricle Normal right ventricular cavity size and systolic function. Atria Both atria are normal in size. Aortic Valve There is a normal trileaflet aortic valve. There is no aortic valve stenosis. There is no aortic valve regurgitation. Mitral Valve The mitral valve appears normal. There is trace mitral valve regurgitation. There is no mitral valve stenosis. Pulmonic Valve The pulmonic valve is likely normal. Tricuspid Valve There is trace tricuspid valve regurgitation. The pulmonary artery systolic pressure is normal. Great Vessels The asc aorta and aortic arch are normal in size. Venous The inferior vena cava is normal in size and collapses greater than 50% with inspiration. Pericardium/Pleural There is no evidence of pericardial effusion. Prior Study Comparison No prior study available for comparison. Recommendations, Care & Conclusions No obvious valvular pathology seen on this study. Measurements 2D Linear Measurements IVSd: 1.08 0.6-0.9/0.6-1.0 cm LVIDd: 4.97 3.9-5.3/4.2-5.9 cm LVIDd Index: 2.84 2.4-3.2/2.2-3.1 cm/m2 LVIDs: 2.72 2.0-3.6 cm LVPWd: 0.94 0.7-1.1 cm LA Diam: 3.50 2.7-3.8/3.0-4.0 cm LAIDs Index: 2.00 1.5-2.3 cm/m2 LV Mass: 227.67 67-162/88-224 g LV Mass Index: 130.10 43-95/49-115 g/m2 LVOT Diam: 2.00 3.0+(-)1.3 cm 2D Systolic Function EF 4C: 60.20 >55% EF 2C: 63.50 >55% EF BiP: 61.80 >55% Mitral Valve MV Pk E: 0.72 MV PK A: 0.44 MV Decel Time: 232.00 E/A: 1.70 E'Lateral: 12.30 E'Medial: 9.90 E/E' Med: 7.30 E/E' Lat: 5.90 PHT: 68.00 MVA PHT: 3.24 Decel Titus: 3.12 Aortic Valve AoV Pk Oh: 1.31 AoV Mn Oh: 0.83 AoV VTI: 0.26 AoV Pk Grad: 7.00 Aov Mn Grad: 3.00 EMMA Cont.VTI: 3.02 LVOT LVOT Pk Oh: 1.16 LVOT Mn Oh: 0.70 LVOT VTI: 0.25 LVOT Pk Grad: 5.00 LVOT Mn Grad: 2.00 LVOT Diam: 2.00 LVOT Area: 3.14 Diastolic Function MV Pk E: 0.72 MV Pk A: 0.44 E/A: 1.70 E'Medial: 9.90 E/E' Med: 7.30 E' Laterial: 12.30 E/E' Lat: 5.90 Right Ventricle TAPSE (mm): 20.40 TVS' Oh: 10.70 Tricuspid Valve TR Pk Oh: 2.78 TR Pk Grad: 31.00 RA Press: 3.00 RVSP: 34.00 Great Vessels Aorta Ao Asc: 3.20 2.1-3.4 cm Ao Arch: 2.60 Updated in Other Vendor System with Status of Final Dontrell Jackosn MD electronically signed on 09/05/2021 10:23:05 AM with status of Final
== END ==
LOC: HO.CARD 08:34
PROVIDERS: PCP Internal Medicine; Visit Provider Internal Medicine
DX: R06.00 Dyspnea, unspecified (principal)
CPT/HCPCS: 93306; Q9957

== ENCOUNTER → 2021-09-10 14:31 | Outpatient (BNVA) | payer OTHER, SELFPAY | PROVIDERS: PCP Registered Nurse; Referring Provider Nurse Practitioner Primary Care; Visit Provider Internal Medicine Cardiovascular Disease | DX: R06.02 Shortness of breath (principal); C50.912 Malignant neoplasm of unspecified site of left female breast; Z92.3 Personal history of irradiation | CPT/HCPCS: 93005; 99202 ==

== ENCOUNTER → 2021-09-18 07:59 | Outpatient (REF) | payer OTHER, SELFPAY ==
--- NOTE | 2021-09-18 08:02 | CA_ITS ---
Acquisition Time: 2021-09-18 08:22:12 Total Exercise Time: 00:06:20 Test Indications: Dyspnea Medications: ASA XARELTO Protocol: NOVA Max HR: 144 BPM 86% of Pred: 167 BPM Max BP: 136/074 mmHG Max Work Load: 7.5 METS Exercise stress test with exercise 6 min 20 sec of Nova protocol, with moderate shortness of breath, no chest discomfort, without arrythmia, with normotensive response to exercise, with EKG changes meeting crtieria for ischemia V5-V6, borderline inferiorly, which improves quickly in recovery. Breathing normalized with rest. Test reviewed with Dr Ortega. Will order an exercise nuclear stress test for further evaluation. Referred By: Patrick Ortega Overread By: MELISSA HURTADO
== END ==
LOC: HO.CARD 07:59
PROVIDERS: Visit Provider Internal Medicine Cardiovascular Disease
DX: R06.02 Shortness of breath (principal); R94.39 Abnormal result of other cardiovascular function study
CPT/HCPCS: 93017

== ENCOUNTER 2021-10-14 15:00 | Outpatient (REF) | payer OTHER, SELFPAY ==
--- NOTE | ~2021-10-14 | MM_ITS ---
EXAMINATION: MM DIAGNOSTIC DIGITAL BREAST TOMOSYNTHESIS, BILATERAL CLINICAL INFORMATION: Due for yearly. History left invasive ductal cancer status post lumpectomy 12/31/2020, RT completed 03/2021. Also probable benign calcifications posterior upper outer right breast for follow-up. COMPARISON: Mammography: 05/09/2020, 05/29/2020, 11/26/2020, 12/12/2020, 12/31/2020 (BI-RADS 0). TECHNIQUE: Digital breast tomosynthesis is performed in both the craniocaudal and mediolateral oblique views along with computer-aided detection (CAD). Synthesized 2D images are generated from the tomosynthesis. Additional magnification views are obtained: Left CC, left ML x2, right CC, right ML. FINDINGS: The breasts are heterogeneously dense, which may obscure small masses (ACR BI-RADS breast composition Category c). There are post therapy changes on the left with reduced breast size and scarring. There is smooth left breast skin thickening and mild coarsening interstitial markings related to the radiation. Scattered fine calcifications are present upper outer quadrant similar to prior imaging. Right breast parenchymal pattern is similar to prior study. There is no developing density or interval mass or architectural abnormality. Tightly grouped fine calcifications posterior upper outer right breast are stable and will be reassessed again at next bilateral annual mammography. Results are provided to the patient at time of visit by the technologist. MM/MM tomosynthesis diagnostic BI IMPRESSION: Left: -Post therapy changes. Right: -No significant change from prior exam. -Probable benign calcifications posterior upper outer quadrant, stable. ASSESSMENT: BI-RADS 3: Probably Benign RECOMMENDATION: Diagnostic mammography at next bilateral annual exam to include bilateral magnification views. This patient's information was entered into a reminder system with a target due date for their next mammogram.
== END 2021-10-14 15:01 | disposition home or self-care (01) ==
LOC: HO.MAMMO 15:00
PROVIDERS: PCP Internal Medicine; Visit Provider Internal Medicine Medical Oncology
DX: C50.912 Malignant neoplasm of unspecified site of left female breast (principal)
CPT/HCPCS: 77062; 77066

== ENCOUNTER → 2021-10-21 10:44 | Outpatient (REF) | payer OTHER, SELFPAY ==
--- NOTE | 2021-10-21 10:49 | CA_ITS ---
Acquisition Time: 2021-10-21 11:00:19 Total Exercise Time: 00:07:48 Test Indications: Dyspnea Medications: ASA XARELTO RALOXIFENE Protocol: NOVA Max HR: 153 BPM 91% of Pred: 167 BPM Max BP: 134/080 mmHG Max Work Load: 9.7 METS Exercise stress test with exercise 7 min 48 sec of Nova protocol, achieving 92% MPHR, with moderate to severe shortness of breath, no chest discomfort, without arrythmia, with normotensive response to exercise ( not obtained in stage 3), with artifact during exercise, with J point depression upsloping ST inferiorly, V5 with horizontal ST depression V6 at 30 sec recovery, with borderline ST changes noted in those leads in recovery. Echo images obtained by tech at rest and immediately post peak exercise. Definity contrast used. Breathing normalized in recovery period. STRESS ECHO : Technique : Images were obtained at rest and immediately within 35 seconds. Definity contrast was used to enhance endocardial defintion. Images were obtained in multiple views and compared side to side. Findings : Images at rest were of good quality. LV systiolic function is normal with normal wall motion. Post exercise images are of adequate quality. There is good augmentation of overall LV systolic function. There are no regional wall motion abnormalities. Conclusion : Stress echo is negative for ischemia Referred By: Mona Farnsworth Overread By: COLLINS LORENZO MD
== END ==
LOC: HO.CARD 10:44
PROVIDERS: PCP Internal Medicine; Visit Provider Nurse Practitioner Family
DX: R06.02 Shortness of breath (principal); R94.39 Abnormal result of other cardiovascular function study
CPT/HCPCS: 93350; Q9957

== ENCOUNTER → 2021-10-23 11:12 | Outpatient (BNVA) | payer OTHER, SELFPAY | PROVIDERS: PCP Registered Nurse; Referring Provider Registered Nurse; Visit Provider Internal Medicine Cardiovascular Disease | DX: R06.02 Shortness of breath (principal) | CPT/HCPCS: 99212 ==

== ENCOUNTER → 2021-10-30 09:12 | Outpatient (BNVA) | payer OTHER, SELFPAY | PROVIDERS: PCP Internal Medicine; Referring Provider Internal Medicine; Visit Provider Surgery | DX: D05.12 Intraductal carcinoma in situ of left breast (principal) | CPT/HCPCS: 99212 ==

== ENCOUNTER → 2022-02-19 11:22 | Outpatient (BNVA) | payer OTHER, SELFPAY | PROVIDERS: PCP General Practice; Visit Provider Advanced Practice Midwife | DX: N92.6 Irregular menstruation, unspecified (principal); N95.1 Menopausal and female climacteric states; R23.2 Flushing | CPT/HCPCS: 99202 ==

== ENCOUNTER 2022-03-30 10:54 | Outpatient (REF) | payer OTHER, SELFPAY ==
--- NOTE | ~2022-03-30 | US_ITS ---
EXAMINATION: US PELVIS CLINICAL INFORMATION: Postmenopausal bleeding. Age 51. COMPARISON: None TECHNIQUE: Ultrasound of the pelvis is performed using both transabdominal and transvaginal transducers along with Doppler. Transvaginal imaging is performed due to inadequate visualization transabdominally. FINDINGS: Uterus: The uterus is anteverted and measures 7.5 x 3.1 x 3.8 cm. Volume 46 mL. The double wall endometrial thickness is normal, just under 0.4 cm. No fluid in uterine cavity. No abnormal color flow. There is a peripheral intramural posterior uterine body fibroid measuring 1.5 cm. There is subtle heterogeneous echogenicity within the myometrium which could be related to adenomyosis. This could be further assessed with pelvic MRI. There are some small nabothian cysts in the cervix. Adnexa: The left ovary is not visualized. There is no visible left adnexal mass and no pelvic ascites. The right ovary is normal measuring 2.2 x 1.4 x 2.2 cm. US/US pelvic and transvaginal IMPRESSION: Uterus: -Posterior uterine body intramural fibroid 1.5 cm. Possible adenomyosis. -Endometrial double wall thickness normal, just under 0.4 cm. No fluid in uterine cavity. Adnexa: -Right ovary unremarkable. -Left ovary not visualized. -No visible adnexal mass or pelvic ascites.
== END 2022-03-30 10:55 | disposition home or self-care (01) ==
LOC: HO.US 10:54
PROVIDERS: Visit Provider Advanced Practice Midwife
DX: N92.6 Irregular menstruation, unspecified (principal); N95.1 Menopausal and female climacteric states
CPT/HCPCS: 76830; 76856

== ENCOUNTER 2022-04-08 11:33 | Outpatient (REF) | payer OTHER, SELFPAY ==
[2022-04-08 13:17] LABS: Thyroid Stimulating Hormone 2.02 uIU/mL (0.32-4.0)
[2022-04-09 21:43] LABS: Follicle Stimulating Hormone 39.9 mIU/mL
== END 2022-04-08 11:34 | disposition home or self-care (01) ==
LOC: HO.LAB 11:33
PROVIDERS: PCP General Practice; Visit Provider Advanced Practice Midwife
DX: N92.6 Irregular menstruation, unspecified (principal); R23.2 Flushing; R93.89 Abnormal findings on diagnostic imaging of other specified body structures; Z71.2 Person consulting for explanation of examination or test findings
CPT/HCPCS: 36415; 83001; 84443; 99212

== ENCOUNTER 2022-04-21 15:04 | Outpatient (REF) | payer OTHER, SELFPAY | END 2022-04-21 15:05 | disposition home or self-care (01) | LOC: HO.MRI 15:04 | PROVIDERS: PCP General Practice; Visit Provider Internal Medicine | DX: Z13.89 Encounter for screening for other disorder (principal) ==

== ENCOUNTER → 2022-05-04 14:14 | Outpatient (BNVA) | payer OTHER, SELFPAY | PROVIDERS: PCP General Practice; Visit Provider Surgery | DX: D05.12 Intraductal carcinoma in situ of left breast (principal) | CPT/HCPCS: 99212 ==

== ENCOUNTER → 2022-05-18 09:50 | Outpatient (BNVA) | payer OTHER, SELFPAY | PROVIDERS: PCP General Practice; Visit Provider Advanced Practice Midwife | DX: N95.0 Postmenopausal bleeding (principal) | CPT/HCPCS: 58100; 81025 ==

== ENCOUNTER 2022-10-14 14:45 | Outpatient (REF) | payer OTHER, SELFPAY ==
--- NOTE | ~2022-10-14 | MM_ITS ---
EXAMINATION: MM DIAGNOSTIC DIGITAL BREAST TOMOSYNTHESIS, BILATERAL CLINICAL INFORMATION: Left IDC status post lumpectomy 12/31/2020, RT completed 03/2021. Due for yearly. Also follow-up calcifications bilateral upper outer quadrants. COMPARISON: Multiple breast imaging exams dating back to new baseline 05/09/2020 (BI-RADS 0). TECHNIQUE: Digital breast tomosynthesis is performed in both the craniocaudal and mediolateral oblique views along with computer-aided detection (CAD). Synthesized 2D images are generated from the tomosynthesis. Bilateral magnification CC and bilateral magnification ML views are obtained. FINDINGS: The breasts are heterogeneously dense, which may obscure small masses (ACR BI-RADS breast composition Category c). Left breast has post therapy changes with reduced breast size and stable scarring. There is decreased since postradiation skin thickening since prior study 10/14/2021. There are interval benign coarse clearly dystrophic calcifications in the scar periareolar 12:00 position. The punctate calcifications mid upper outer left breast are stable from prior diagnostic exams. There are 2 small stable nodules posterior upper outer left breast. No developing density. Right breast parenchymal pattern is similar to prior studies. No developing density or interval architectural abnormality. The calcifications for follow-up posterior upper outer quadrant are without change. Preliminary results provided to the patient at time of visit by the technologist. MM/MM tomosynthesis diagnostic BI IMPRESSION: -No significant changes from prior study. Bilateral upper outer quadrant calcifications stable. -Post therapy changes left breast. New benign dystrophic calcifications anterior 12:00 periareolar scar. ASSESSMENT: BI-RADS 3: Probably Benign RECOMMENDATION: Bilateral diagnostic mammography in 6 months to include bilateral magnification views. This patient's information was entered into a reminder system with a target due date for their next mammogram.
== END 2022-10-14 14:46 | disposition home or self-care (01) ==
LOC: HO.MAMMO 14:45
PROVIDERS: PCP General Practice; Visit Provider Internal Medicine
DX: R92.1 Mammographic calcification found on diagnostic imaging of breast (principal)
CPT/HCPCS: 77062; 77066

== ENCOUNTER 2022-10-26 14:53 | Outpatient (AMB) | payer MEDICAID, SELFPAY ==
--- NOTE | 2022-10-26 15:00 | MHC.OFFVIS ---
Intake Vital Signs 10/26/22 15:18 Height 5 ft 5 in Weight 171 lb 4 oz BMI 28.5 BP 120/73 Blood Pressure Location Lt brachial Position Sitting Pulse 74 Intake Visit Reasons: 6 month breast exam, post left breast lumpectomy Intake Note: Patient is seen in office for 6 month follow up visit, breast exam. Pt c/o: admits to continued pain in the left breast, had recent mammogram sched on 10/14/22 and was instructed to follow up in 6 months would like to know why so soon, not in one year as usual. 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 Artist Present Accompanied by: Self / Same As Patient Allergies No Known Allergies Allergy (Verified 10/26/22 15:17) Medication List - Last Reconciled 10/27/22 by Shan Ayers MD ascorbic acid (vitamin C) 500 mg PO DAILY aspirin (Stuart Low Dose Aspirin) 81 mg PO DAILY cholecalciferol (vitamin D3) 1,250 mcg PO DAILY cyanocobalamin (vitamin B-12) 1,000 mcg PO DAILY ferrous sulfate 325 mg PO DAILY folic acid 1 mg PO DAILY raloxifene 60 mg PO DAILY rivaroxaban (Xarelto) 1 tab PO BEDTIME PRN HPI HPI Comments History of Present Illness Details 52-year-old female patient presenting initially with a recent mammogram which revealed an area of architectural distortion in the left breast in the subareolar location.? Ultrasound-guided core biopsy at [facility] on 12/12/2020 revealed invasive ductal carcinoma, grade 1, with low-grade DCIS, solid type with single cell necrosis, ER positive, WV positive, HER2 Saw negative.? She was evaluated by me on 12/26/2020 following this biopsy. Patient denies a previous history of breast problems or breast surgery.? She does have a maternal aunt with breast cancer who in her 90s free of disease.? She denies symptoms related to the breast including palpable breast mass, skin changes, nipple discharge, or enlarged lymph nodes. Left breast lumpectomy with needle localization, sentinel node biopsy on 12/31/2020 revealed:??Ductal carcinoma situ, nuclear grade 1; positive superior margin, Biopsy site changes.? Usual ductal hyperplasia and fibrocystic changes.? No definitive residual invasive ductal carcinoma identified.? 2 sentinel nodes and 2 additional axillary lymph nodes were negative for metastatic carcinoma. On?01/12/2021, she underwent a wider excision of the left breast due to the positive margin for DCIS.? Pathology revealed:??Usual ductal hyperplasia, small radial scar, intraductal papilloma and scattered microcalcifications.? Biopsy/prior procedure site changes. No residual carcinoma seen.? The biopsy cavity is at least 1.5 cm from the new margins. She underwent left breast radiation therapy [facility] (Dr. Myers) completed treatment on 04/02/2021. She tolerated the treatment well but does report some discomfort in the entire left breast. She was started on Xarelto by Dr. Sparks due to a DVT; she is now on raloxifene and tolerating this well. Bilateral mammogram performed on 10/14/2022 revealed no significant changes with bilateral upper outer quadrants stable calcifications with no significant change. He six-month follow-up bilateral diagnostic mammography was recommended (BI-RADS 3) and is scheduled 04/08/2023. PENDING SALE TO [facility] Medical History DVT (deep venous thrombosis) Family history of adverse response to anesthesia in father Heterozygous factor V Leiden mutation Hx of radiation therapy Internal hemorrhoids Surgical History History of lumpectomy of left breast Hx of shoulder surgery Family History Unknown No problems noted. Paternal Grandmother Diabetes Maternal Grandmother Diabetes Maternal Aunt Breast cancer Social History Household Members: Spouse and Children Housing: House Are you a primary clinical manager home care to a significant other at home: No Do you presently have visiting nurse or other home services: No Alcohol intake: never Patient Tobacco Use Status: Never used Tobacco Second Hand Smoke Exposure: No service: No Current occupational status: unemployed Female Reproductive History Menstrual Age of Menarche: 13 Review of Systems Const All systems reviewed & are unremarkable except as noted in HPI and below Card Denies chest pain, Denies rapid heart rate, Denies irregular heart rhythm and Denies dyspnea Resp Denies chest congestion, Denies cough and Denies dyspnea Denies nipple discharge Skin/Breast Denies breast swelling, Reports breast skin changes, Reports breast pain, Denies breast mass, Denies change in breast shape and Denies nipple discharge Mitchell/Lymph Details: Factor 5 Leiden Denies easy bleeding and Denies lymphadenopathy Physical Exam Vital Signs: Last Vital Signs Pulse 74 10/26/22 15:18 BP 120/73 10/26/22 15:18 BMI result Body Mass Index 28.5 Const General: cooperative and no acute distress Nutritional Appearance: well nourished Orientation/consciousness: patient oriented x3 Limitations: no limitations Chest Other: Left breast with continued radiation changes involving the entire breast with lymphedema especially around the nipple-areolar complex. Incision in the left axilla is soft and nontender; incision around the nipple is well healed. No palpable mass, skin change, nipple discharge, or palpable lymph node is appreciated. Right breast reveals no skin change, nipple discharge, palpable mass, or enlarged lymph nodes. Chest/axillae images: 1. Incision left breast, periareolar Resp Effort & Inspection: normal respiratory effort, no audible wheezes, no cough and no respiratory distress GI Inspection: Yes normal to inspection Skin Other: Warm, dry, no rash Neuro General: patient oriented x3 Extrem Other: No edema Assessment & Plan Assessment & Plan (1) Ductal carcinoma in situ (DCIS) of left breast: Code(s): D05.12 - Intraductal carcinoma in situ of left breast (2) Invasive ductal carcinoma of left breast, stage 1: Code(s): C50.912 - Malignant neoplasm of unspecified site of left female breast Plan 52-year-old female patient returning for follow-up breast examination after left breast lumpectomy with needle localization and sentinel node biopsy. Pathology revealed invasive ductal carcinoma with ductal carcinoma in situ. She required a wider excision to assure negative margins. She has subsequently follow-up with Dr. Sparks and was started on raloxifene. She was also started on oral anticoagulation due to a DVT. Radiation therapy was completed on 04/02/2021. She has residual tenderness and inflammation from the surgical site and radiation therapy. Examination today revealed continued post therapy changes however no new suspicious findings were identified. Her most recent mammogram of 10/14/2022 revealed bilateral upper outer quadrant calcifications felt to be low suspicion for malignancy (BI-RADS 3). Six-month follow-up mammograms are scheduled in March. I recommended follow-up examination following this mammogram in 6 months. She is welcome to call sooner for any new concerns. Coding Level of Care Code Est Pt Level 3 (58777) Diagnoses Ductal carcinoma in situ (DCIS) of left breast D05.12 Invasive ductal carcinoma of left breast, stage 1 C50.912
[2022-10-26 15:18] VITALS: BP 120/73; PULSE 74; BMI 28.5
== END 2022-10-26 15:31 | disposition home or self-care (01) ==
PROVIDERS: PCP General Practice; Visit Provider Surgery
DX: D05.12 Intraductal carcinoma in situ of left breast (principal)
CPT/HCPCS: 99213

== ENCOUNTER → 2022-10-26 14:53 | Outpatient (BNVA) | payer MEDICAID, SELFPAY | PROVIDERS: PCP General Practice; Visit Provider Surgery | DX: D05.12 Intraductal carcinoma in situ of left breast (principal) | CPT/HCPCS: 99212 ==

== ENCOUNTER 2022-12-01 10:13 | Outpatient (REF) | payer MEDICAID, SELFPAY ==
[2022-12-01 11:39] LABS: Estimated Average Glucose 105 mg/dL; Hemoglobin A1c % 5.3 %
[2022-12-01 12:10] LABS: Alanine Aminotransferase 11 U/L (0-31); Albumin Level 4.2 g/dL (3.5-5.0); Alkaline Phosphatase 65 U/L (39-117); Anion Gap 10 (12-20); Aspartate Amino Transferase 14 U/L (5-31); Bilirubin Total 0.6 mg/dL (0.0-1.0); Blood Urea Nitrogen 13 mg/dL (9-16); Calcium 9.5 mg/dL (8.4-10.2); Carbon Dioxide 28 mmol/L (22-29); Chloride 106 mmol/L (96-108); Cholesterol 176 mg/dL; Estimated Glomerular Filt Rate > 60; Glucose Random 91 mg/dL (60-115); HDL Cholesterol 61 mg/dL; LDL Cholesterol Calculated 100 mg/dl; Potassium 4.3 mmol/L (3.3-5.1); Sodium 140 mmol/L (135-145); Total Protein 7.5 g/dL (6.5-8.0); Triglycerides 76 mg/dL
== END 2022-12-01 10:14 | disposition home or self-care (01) ==
LOC: HO.HHCL 10:13
PROVIDERS: Visit Provider General Practice
DX: Z71.3 Dietary counseling and surveillance (principal)
CPT/HCPCS: 36415; 80053; 80061; 83036

== ENCOUNTER 2023-02-24 10:27 | Outpatient (AMB) | payer MEDICAID, SELFPAY ==
--- NOTE | 2023-02-24 10:29 | A.OFFVIS_ITS ---
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 Complaints include pain over varicosities, swelling of lower extremities, cramping, fatigue, and heaviness of the lower extremities. It has been affecting there daily activities including walking. It is noted more so in right leg. Patient denies any previous venous surgery or injections. Of note on 07/04/2017 she was noted to have factor 5 Leiden deficiency from a hospital in [facility]. Patient does have a history of DVT back in 2009 that was after she began use of oral contraceptive pills. In addition she does have a history of breast cancer. Father does have a history of DVT as well Patient denies any history of phlebitis. Trial of compression includes - [id number] They now present for vascular evaluation regarding their varicose veins. [facility] Medical History (Updated 02/24/23 @ 11:45 by Dakota Meléndez MD) Factor V Leiden Heterozygous factor V Leiden mutation Hx of radiation therapy Internal hemorrhoids Family history of adverse response to anesthesia in father DVT (deep venous thrombosis) Surgical History History of lumpectomy of left breast Hx of shoulder surgery Family History Unknown No problems noted. Paternal Grandmother Diabetes Maternal Grandmother Diabetes Maternal Aunt Breast cancer Social History Household Members: Spouse and Children Housing: House Are you a primary geriatric personal care aide to a significant other at home: No Do you presently have visiting nurse or other home services: No Alcohol intake: never Patient Tobacco Use Status: Never used Tobacco Second Hand Smoke Exposure: No service: No Current occupational status: unemployed Female Reproductive History Menstrual Age of Menarche: 13 Review of Systems Const Reports as per HPI ENT Reports no additional complaints Card Denies chest pain, Denies chest pain at rest and Denies chest pain with activity Resp Denies chest congestion and Denies cough GI Reports no additional complaints Musc Details: pain over varicosities, aching of lower extremities, swelling, cramping, heaviness and tiredness, itching Denies abnormal gait Skin/Breast Reports pruritus and Denies wounds Neuro Reports no additional complaints and Denies abnormal gait Psych Denies no additional complaints Physical Exam Vital Signs: BMI result Body Mass Index 29.1 Const General: cooperative, healthy appearing and comfortable Orientation/consciousness: oriented to person, oriented to place and oriented to time Neck Carotids: no bruits Chest Chest palpation & inspection: normal inspection of the chest and normal palpation of entire chest wall Resp Effort & Inspection: normal respiratory effort and able to speak in complete sentences Cardio Rate: regular rate Heart sounds: S1 normal heart sound present and S2 normal heart sound present Peripheral pulses: Peripheral pulses 2+ throughout GI Inspection: Yes normal to inspection Skin Other: +2 edema, multiple spider telangiectasias CEAP Classification C4 - skin color changes Ep - Etiology Primary As - superficial veins P - reflux Right medial calf swelling which is very localized. Concern for a cluster there General skin exam: dry skin Neuro General: oriented to person, oriented to place and oriented to time Extrem Right lower extremity: full ROM, normal capillary refill and edema Left lower extremity: full ROM, normal capillary refill and edema Psych Mental Status: mental status grossly normal Assessment & Plan Assessment & Plan (1) Varicose veins of right lower extremity with inflammation: Code(s): I83.11 - Varicose veins of right lower extremity with inflammation Plan: In short, the patient has evidence of venous insufficiency. I have discussed the pathophysiology with the patient. In addition I have provided informational material regarding venous disease to the patient. We have discussed conservative measures including compression, elevation, and exercise. I have also provided a handout regarding appropriate use of compression stockings and where to purchase good compression stockings as well. I have taken the liberty of ordering venous insufficiency testing with the patient. They will follow up with me after testing. The patient had an opportunity to ask questions regarding the treatment plan. All questions were answered. Imaging studies, laboratory studies and physical exam results were discussed and reviewed in detail. No major barriers to understanding were identified. The patient expressed understanding and agreement with the above treatment plan. The patient is aware they should contact our office by phone for worsening of the current condition or the appearance of new symptoms. Thank you for allowing me to participate in the vascular care of this patient. If you have any questions or concerns regarding the treatment for the above condition please do not hesitate to contact me. The office telephone contact is [phone]. This note is constructed using voice recognition software. While every effort has been made to ensure accuracy, ancillary services manager therapy errors may have been included. Thank you for allowing me to participate in the care of your patient. Yours sincerely, Dakota Meléndez MD, FACS, R.P.V.I. Orders: Orders US venous duplex LE BI 1 Week I83.11 - Varicose veins of right lower extremity with inflammation Coding Level of Care Code New Pt Level 4 (87832) Diagnoses Varicose veins of right lower extremity with inflammation I83.11
[2023-02-24 10:31] VITALS: BMI 29.1
== END 2023-02-24 10:53 | disposition home or self-care (01) ==
PROVIDERS: PCP General Practice; Visit Provider Surgery Vascular Surgery
DX: I83.11 Varicose veins of right lower extremity with inflammation (principal)
CPT/HCPCS: 99203

== ENCOUNTER → 2023-02-24 10:27 | Outpatient (BNVA) | payer MEDICAID, SELFPAY | PROVIDERS: PCP General Practice; Visit Provider Surgery Vascular Surgery | DX: I83.11 Varicose veins of right lower extremity with inflammation (principal) | CPT/HCPCS: 99202 ==

== ENCOUNTER 2023-03-08 08:34 | Outpatient (REF) | payer MEDICAID, SELFPAY ==
--- NOTE | ~2023-03-08 | US_ITS ---
EXAMINATION: US LOWER EXTREMITY VENOUS (REFLUX EXAM), BILATERAL CLINICAL INDICATION: Varicose veins COMPARISON: None. TECHNIQUE: Color flow triplex imaging and compression Doppler was performed to evaluate both the deep and the superficial systems bilaterally. To evaluate the superficial system, the examination was performed in the upright position. Color-flow Doppler ultrasound and compression ultrasound were utilized. In addition, maneuvers were utilized to demonstrate reflux. FINDINGS: 1. DEEP VENOUS ULTRASOUND OF THE RIGHT LOWER EXTREMITY: Common Femoral Vein: Compressible, normal respiratory variation and augmented flow. Femoral Vein: Compressible, normal color flow and augmentation. Popliteal Vein: Compressible, normal augmentation. Deep Reflux: There is no evidence of reflux in the deep system in either the common femoral vein or the popliteal vein. There is no evidence of a Castañeda's cyst. 2. SUPERFICIAL ULTRASOUND WITH DOPPLER OF RIGHT LOWER EXTREMITY: GREAT SAPHENOUS VEIN: Saphenofemoral Junction: 1.2 cm; Reflux: 0 ms Proximal Thigh: 0.5 cm; Reflux: 1612 ms Mid Thigh: 0.4 cm; Reflux: 0 ms Above Knee: 0.4 cm; Reflux: 0 ms At Knee: 0.4 cm; Reflux: 0 ms Below Knee: 0.3 cm; Reflux: 0 ms Mid Calf: 0.2 cm; Reflux: 0 ms Ankle: 0.3 cm; Reflux: 0 ms DUPLICATED MEDIAL GREAT SAPHENOUS VEIN: Diameter: None imaged Reflux: NA DUPLICATED LATERAL GREAT SAPHENOUS VEIN: Proximal: 0.5 cm; Reflux: 0 ms SMALL SAPHENOUS VEIN: Proximal: 0.3 cm; Reflux: 0 ms Distal: 0.3 cm; Reflux: 0 ms VEIN OF GIACOMINI: Size: NA Reflux: NA PERFORATORS: Location: Right mid calf Size: 0.2cm Reflux: NA VARICOSITIES: Location: Right mid thigh Size: 0.3 Reflux: 664ms 3. DEEP VENOUS ULTRASOUND OF THE LEFT LOWER EXTREMITY: Common Femoral Vein: Compressible, normal respiratory variation and augmented flow. Femoral Vein: Compressible, normal color flow and augmentation. Popliteal Vein: Compressible, normal augmentation. Deep Reflux: Deep system reflux in the popliteal vein at 2232ms. There is a 5.1 x 1.0 x 3.5cm complex popliteal fossa Castañeda's cyst. 4. SUPERFICIAL ULTRASOUND WITH DOPPLER OF LEFT LOWER EXTREMITY: GREAT SAPHENOUS VEIN: Saphenofemoral Junction: 1.5 cm; Reflux: 0 ms Proximal Thigh: 0.6 cm; Reflux: 2688 ms Mid Thigh: 0.3 cm; Reflux: 0 ms Above Knee: 0.4 cm; Reflux: 0 ms At Knee: 0.3 cm; Reflux: 0 ms Below Knee: 0.4 cm; Reflux: 0 ms Mid Calf: 0.3 cm; Reflux: 0 ms Ankle: 0.3 cm; Reflux: 0 ms DUPLICATED MEDIAL GREAT SAPHENOUS VEIN: Proximal: 0.5 cm; Reflux: 0 ms SMALL SAPHENOUS VEIN: Proximal: 0.3 cm; Reflux: 0 ms Distal: 0.3 cm; Reflux: 0 ms VEIN OF GIACOMINI: Size: NA Reflux: NA PERFORATORS: Location: Multiple mid thigh Size: 0.2-0.5cm Reflux: 0-2684ms VARICOSITIES: Location: Knee Size: 0.4cm Reflux: none Location: mid calf Size: 0.4cm Reflux: none US/US venous duplex LE BI IMPRESSION: 1. Right great saphenous venous insufficiency. 2. Left great saphenous venous insufficiency. 3. Bilateral refluxing varicosities. 4. Left popliteal fossa Castañeda's cyst.
== END 2023-03-08 08:35 | disposition home or self-care (01) ==
LOC: HO.US 08:34
PROVIDERS: PCP General Practice; Visit Provider Surgery Vascular Surgery
DX: I83.11 Varicose veins of right lower extremity with inflammation (principal)
CPT/HCPCS: 93970

== ENCOUNTER → 2023-03-29 14:00 | Outpatient (BNV) | payer MEDICAID, SELFPAY | PROVIDERS: PCP General Practice; Visit Provider Radiology Diagnostic Radiology | DX: Z85.3 Personal history of malignant neoplasm of breast (principal) | CPT/HCPCS: 77062; 77066 ==

== ENCOUNTER 2023-03-29 14:06 | Outpatient (REF) | payer MEDICAID, SELFPAY ==
--- NOTE | ~2023-03-29 | MM_ITS ---
EXAMINATION: MM DIAGNOSTIC DIGITAL BREAST TOMOSYNTHESIS, BILATERAL CLINICAL INFORMATION: Year 2 left breast status post lumpectomy for IDC. Diagnostic follow-up both breasts calcifications upper outer quadrant bilaterally. COMPARISON: Mammography: TECHNIQUE: Digital breast tomosynthesis is performed in both the craniocaudal and mediolateral oblique views along with computer-aided detection (CAD). Synthesized 2D images are generated from the tomosynthesis. FINDINGS: The breasts are heterogeneously dense, which may obscure small masses (ACR BI-RADS breast composition Category c). Stable postoperative changes to the left breast retroareolar region with dystrophic appearing calcifications present. There are some stable very fine loosely grouped parenchymal calcifications in the upper quadrant left breast middle one third. These are probably benign. Overall appearance of the postoperative left breast is stable. The right breast demonstrates similar group of fine calcifications which appears unchanged when compared with 10/14/2021, and remains probably benign. The number and appearance of the calcifications is unchanged. No additional suspicious findings in the right breast. MM/MM tomosynthesis diagnostic BI IMPRESSION: There are no significant changes from prior study. Stable probably benign calcifications bilaterally. We will follow these in one year with bilateral magnification views. Stable appearance of the postoperative left breast with no suspicious findings present. 1 year follow-up left breast to establish final third year post operative protocol. ASSESSMENT: BI-RADS BI-RADS 3 - Probably benign finding(s) - 12 month follow-up suggested RECOMMENDATION: 12 month diagnostic follow up Results were provided to the patient at time of visit by the technologist. This patient's information was entered into a reminder system with a target due date for their next mammogram.
== END 2023-03-29 14:07 | disposition home or self-care (01) ==
LOC: HO.MAMMO 14:06
PROVIDERS: PCP General Practice; Visit Provider General Practice
DX: R92.1 Mammographic calcification found on diagnostic imaging of breast (principal)
CPT/HCPCS: 77062; 77066

== ENCOUNTER 2023-04-12 09:58 | Outpatient (AMB) | payer MEDICAID, SELFPAY ==
[2023-04-12 10:01] VITALS: BP 128/82; PULSE 79; O2SAT 100; BMI 28.2
--- NOTE | 2023-04-12 10:01 | A.OFFVIS_ITS ---
Intake Vital Signs 04/12/23 10:01 Height 5 ft 5 in Weight 169 lb 12.095 oz BMI 28.2 BP 128/82 Blood Pressure Location Rt brachial Position Sitting Pulse 79 Pulse Source Pulse Oximeter Pulse Oximetry (%) 100 Oxygen Delivery Method Room Air Intake Visit Reasons: FU Intake Note: Pt presents to the office today for a follow up . Pt states she is feeling well. Pt denies any swelling in her legs but does get swelling in her feet. Pt states she does get pain in her feet after standing for a longer period of time. Pt denies any numbness or tingling. Allergies No Known Allergies Allergy (Verified 04/12/23 10:02) HPI FU HPI Details Very pleasant 52-year-old female presents for follow-up regarding venous insufficiency. She has a history back in 2009 of a DVT secondary to contraceptive pills. She actually on 07/04/2017 was diagnosed with factor 5 Leiden deficiency from a hospital in [facility]. She continues to have swollen lower extremities and some discomfort. She now presents for follow-up with venous insufficiency testing. She has had no other interval changes. She wears compression stockings with minimal relief. [facility] Medical History Factor V Leiden Heterozygous factor V Leiden mutation Hx of radiation therapy Internal hemorrhoids Family history of adverse response to anesthesia in father DVT (deep venous thrombosis) Surgical History History of lumpectomy of left breast Hx of shoulder surgery Family History Unknown No problems noted. Paternal Grandmother Diabetes Maternal Grandmother Diabetes Maternal Aunt Breast cancer Social History Household Members: Spouse and Children Housing: House Are you a primary ocular care technologist to a significant other at home: No Do you presently have visiting nurse or other home services: No Alcohol intake: never Patient Tobacco Use Status: Never used Tobacco Second Hand Smoke Exposure: No service: No Current occupational status: unemployed Female Reproductive History Menstrual Age of Menarche: 13 Review of Systems Const Reports as per HPI ENT Reports no additional complaints Card Denies chest pain, Denies chest pain at rest and Denies chest pain with activity Resp Denies chest congestion and Denies cough GI Reports no additional complaints Musc Details: pain over varicosities, aching of lower extremities, swelling, cramping, heaviness and tiredness, itching Denies abnormal gait Skin/Breast Reports pruritus and Denies wounds Neuro Reports no additional complaints and Denies abnormal gait Psych Denies no additional complaints Physical Exam Vital Signs: Last Vital Signs Pulse 79 04/12/23 10:01 BP 128/82 04/12/23 10:01 Pulse Ox 100 04/12/23 10:01 Oxygen Delivery Method Room Air 04/12/23 10:01 BMI result Body Mass Index 28.2 Const General: cooperative, healthy appearing and comfortable Orientation/consciousness: oriented to person, oriented to place and oriented to time Neck Carotids: no bruits Chest Chest palpation & inspection: normal inspection of the chest and normal palpation of entire chest wall Resp Effort & Inspection: normal respiratory effort and able to speak in complete sentences Cardio Rate: regular rate Heart sounds: S1 normal heart sound present and S2 normal heart sound present Peripheral pulses: Peripheral pulses 2+ throughout GI Inspection: Yes normal to inspection Skin Other: +2 edema, right greater than left General skin exam: dry skin Neuro General: oriented to person, oriented to place and oriented to time Extrem Right lower extremity: full ROM, normal capillary refill and edema Left lower extremity: full ROM, normal capillary refill and edema Psych Mental Status: mental status grossly normal Results Reviewed Results Reviewed: Brief summary of venous insufficiency testing is as follows: right great saphenous vein: Focally positive mid thigh right small saphenous vein: negative right accessory vein: none present left great saphenous vein: Focally positive mid thigh left small saphenous vein: negative left accessory vein: none present Please note there is no evidence of any venous aneurysms or significant tortuosity Assessment & Plan Assessment & Plan (1) Varicose veins of right lower extremity with inflammation: Code(s): I83.11 - Varicose veins of right lower extremity with inflammation Plan: In short patient is negative for any significant venous insufficiency. In addition I do not appreciate any significant large varicosities which need to be removed. At the current time we did discuss routine conservative measures including compression, elevation, exercise. She will follow up with us on an as-needed basis. Thank you for allowing us to assist in her care (2) Left leg DVT: Code(s): I82.402 - Acute embolism and thrombosis of unspecified deep veins of left lower extremity Qualifiers: Affected thrombotic vein of extremity: unspecified vein of extremity Chronicity: unspecified Qualified Code(s): I82.402 - Acute embolism and thrombosis of unspecified deep veins of left lower extremity Plan: In short patient has a remote history DVT. We did discuss the fact that she will have deep reflux just by the mere fact that she does have this prior history of a DVT. Once again no acute intervention required. We did discuss routine conservative measures including compression, elevation, exercise. She will follow up with us on as-needed basis. Thank you for allowing us to assist in her care. If there are questions or concerns please do not hesitate to c ontact us. Coding Level of Care Code Est Pt Level 4 (98476) Diagnoses Varicose veins of right lower extremity with inflammation I83.11 Deep vein thrombosis (DVT) of left lower extremity, unspecified chronicity, unspecified vein I82.402 Affected thrombotic vein of extremity: unspecified vein of extremity Chronicity: unspecified
== END 2023-04-12 10:12 | disposition home or self-care (01) ==
PROVIDERS: PCP General Practice; Visit Provider Surgery Vascular Surgery
DX: I83.11 Varicose veins of right lower extremity with inflammation (principal); I82.402 Acute embolism and thrombosis of unspecified deep veins of left lower extremity
CPT/HCPCS: 99213

== ENCOUNTER → 2023-04-12 09:58 | Outpatient (BNVA) | payer MEDICAID, SELFPAY | PROVIDERS: PCP General Practice; Visit Provider Surgery Vascular Surgery | DX: I83.11 Varicose veins of right lower extremity with inflammation (principal); I82.402 Acute embolism and thrombosis of unspecified deep veins of left lower extremity | CPT/HCPCS: 99212 ==

== ENCOUNTER 2023-04-19 15:18 | Outpatient (AMB) | payer MEDICAID, SELFPAY ==
--- NOTE | 2023-04-19 15:33 | A.OFFVIS_ITS ---
Intake Vital Signs 04/19/23 15:40 Height 5 ft 5 in Weight 171 lb BMI 28.5 BP 122/76 Blood Pressure Location Lt brachial Position Sitting Pulse 78 Intake Visit Reasons: 6 month breast exam Intake Note: Patient is seen in office for 6 month follow up visit, breast exam. Pt c/o: continued left breast pain near the chest area, pain comes and goes, when lifting the left arm gets cramps toward the back of the arm mm:03/29/23 Long Chain Beamer Required: No Product Management Manager: Product Management Manager Present Accompanied by: Self / Same As Patient Allergies No Known Allergies Allergy (Verified 04/19/23 15:34) Medication List - Last Reconciled 04/20/23 by Shan Ayers MD ascorbic acid (vitamin C) 500 mg PO DAILY aspirin (Stuart Low Dose Aspirin) 81 mg PO DAILY cholecalciferol (vitamin D3) 1,250 mcg PO DAILY ferrous sulfate 325 mg PO DAILY folic acid 1 mg PO DAILY raloxifene 60 mg PO DAILY rivaroxaban (Xarelto) 1 tab PO BEDTIME PRN HPI HPI Comments History of Present Illness Details 52-year-old female patient returning for a follow-up breast examination following a left breast invasive ductal carcinoma with DCIS, ER/[place] positive, HER2 Saw negative. Her initial mammogram revealed architectural distortion in the left breast in the subareolar location. Ultrasound-guided core biopsy at [facility] on 12/12/2020 revealed invasive ductal carcinoma, grade 1, with low- grade DCIS, solid type with single cell necrosis, ER/[place] positive, hER 2 Saw negative. She subsequent underwent a left breast lumpectomy with needle localization, sentinel node biopsy on 12/31/2020 revealed ductal carcinoma in- situ, nuclear grade 1 with positive superior margins. No definitive residual invasive ductal carcinoma was identified. Two sentinel nodes into additional axillary lymph nodes were negative for metastatic carcinoma. She underwent a wider excision on 01/12/2021 achieve negative DCIS margins. The pathology revealed usual ductal hyperplasia, radial scar, intraductal papilloma and scattered microcalcifications. Biopsy/prior procedure site with no residual carcinoma. Biopsy cavity was least 1.5 cm from the new margin. She underwent radiation therapy at [facility] which was completed on 04/02/2021. She is followed by Dr. Sparks and was subsequently started on Xarelto after developing a DVT. She is currently taking raloxifene and appears to tolerate this well. Her most recent mammogram of 10/14/2022 revealed noted significant changes with stable bilateral calcifications. Six-month follow-up diagnostic mammography was recommended (BI-RADS 3). This was subsequently performed on 03/29/2023 which revealed no significant change from the prior mammogram (BI-RADS 3). A follow- up bilateral mammography is recommended in 12 months. She mainly complains of discomfort in the left breast mostly in the upper inner quadrants. She denies any swelling in the arm or hands. She denies any new palpable mass in either breast. [facility] Medical History Factor V Leiden Heterozygous factor V Leiden mutation Hx of radiation therapy Internal hemorrhoids Family history of adverse response to anesthesia in father DVT (deep venous thrombosis) Surgical History History of lumpectomy of left breast Hx of shoulder surgery Family History Unknown No problems noted. Paternal Grandmother Diabetes Maternal Grandmother Diabetes Maternal Aunt Breast cancer Social History Household Members: Spouse and Children Housing: House Are you a primary aged or disabled carer to a significant other at home: No Do you presently have visiting nurse or other home services: No Alcohol intake: never Patient Tobacco Use Status: Never used Tobacco Second Hand Smoke Exposure: No service: No Current occupational status: unemployed Female Reproductive History Menstrual Age of Menarche: 13 Review of Systems Const All systems reviewed & are unremarkable except as noted in HPI and below Card Denies chest pain, Denies rapid heart rate, Denies irregular heart rhythm and Denies dyspnea Resp Denies chest congestion, Denies cough and Denies dyspnea Denies nipple discharge Skin/Breast Denies breast swelling, Reports breast skin changes, Reports breast pain, Denies breast mass, Denies change in breast shape and Denies nipple discharge Mitchell/Lymph Details: Factor 5 Leiden Denies easy bleeding and Denies lymphadenopathy Physical Exam Vital Signs: Last Vital Signs Pulse 78 04/19/23 15:40 BP 122/76 04/19/23 15:40 BMI result Body Mass Index 28.5 Const General: cooperative and no acute distress Nutritional Appearance: well nourished Orientation/consciousness: patient oriented x3 Limitations: no limitations Chest Other: Left breast with continued radiation changes involving the entire breast with lymphedema especially around the nipple-areolar complex. Incision in the left axilla is soft and nontender; incision around the nipple is well healed. No palpable mass, skin change, nipple discharge, or palpable lymph node is appreciated. Tenderness is noted throughout the left breast consistent with rad iation change. Right breast reveals no skin change, nipple discharge, palpable mass, or enlarged lymph nodes. Resp Effort & Inspection: normal respiratory effort, no audible wheezes, no cough and no respiratory distress GI Inspection: Yes normal to inspection Skin Other: Warm, dry, no rash Neuro General: patient oriented x3 Extrem Other: No edema Assessment & Plan Assessment & Plan (1) Ductal carcinoma in situ (DCIS) of left breast: Code(s): D05.12 - Intraductal carcinoma in situ of left breast (2) Invasive ductal carcinoma of left breast, stage 1: Code(s): C50.912 - Malignant neoplasm of unspecified site of left female breast Plan 52-year-old female patient returning for follow-up breast examination after left breast lumpectomy with needle localization and sentinel node biopsy. Pathology revealed invasive ductal carcinoma with ductal carcinoma in situ. She required a wider excision to assure negative margins. She has subsequently follow-up with Dr. Sparks and was started on raloxifene. Radiation therapy was completed on 04/02/2021. She has residual tenderness and inflammation from the surgical site and radiation therapy. Examination today revealed continued post therapy changes however no new suspicious findings were identified. Her most recent mammogram of 03/29/2023 revealed bilateral upper outer quadrant calcifications felt to be low suspicion for malignancy (BI-RADS 3). One year follow-up mammograms are scheduled in March 2024. I recommended follow-up examination in 6 months. She is welcome to call sooner for any new concerns. Coding Level of Care Code Est Pt Level 3 (05395) Diagnoses Ductal carcinoma in situ (DCIS) of left breast D05.12 Invasive ductal carcinoma of left breast, stage 1 C50.912
[2023-04-19 15:40] VITALS: BP 122/76; PULSE 78; BMI 28.5
== END 2023-04-19 15:53 | disposition home or self-care (01) ==
PROVIDERS: PCP General Practice; Visit Provider Surgery
DX: C50.912 Malignant neoplasm of unspecified site of left female breast (principal)
CPT/HCPCS: 99213

== ENCOUNTER → 2023-04-19 15:18 | Outpatient (BNVA) | payer MEDICAID, SELFPAY | PROVIDERS: PCP General Practice; Visit Provider Surgery | DX: C50.912 Malignant neoplasm of unspecified site of left female breast (principal); Z17.0 Estrogen receptor positive status [ER+]; Z92.3 Personal history of irradiation | CPT/HCPCS: 99212 ==

== ENCOUNTER 2023-09-08 09:48 | Outpatient (REF) | payer MEDICAID, SELFPAY ==
[2023-09-08 11:37] LABS: MANUAL DIFF FLAG NO
[2023-09-08 11:51] LABS: Basophils Percent Auto 0.5 % (0-2); Eosinophils Absolute Auto 0.2 X10*3/uL (0.0-0.4); Eosinophils Percent Auto 2.6 % (0-4); Hemoglobin 12.5 g/dl (12.0-16.0); Imm Gran Abs Auto 0.02 X10*3/uL (0.00-0.03); Imm Gran Pct Auto 0.3 % (0.0-0.4); Lymphocytes Absolute Auto 1.7 X10*3/uL (1.2-4.9); Lymphocytes Percent Auto 27.5 % (20-40); Mean Corpuscular HGB Conc 32.9 g/dl (31.0-35.0); Mean Corpuscular Hemoglobin 26.5 pg (27.0-33.0); Mean Corpuscular Volume 80.5 fL (80.0-98.0); Mean Platelet Volume 10.8 fL (9.4-12.3); Monocytes Absolute Auto 0.4 X10*3/uL (0.1-1.2); Monocytes Percent Auto 6.1 % (2-11); Neutrophils Absolute Auto 3.9 x10*3/uL (2.0-8.3); Platelet Count 237 X10*3/uL (160-400); Red Blood Count 4.72 X10*6/uL (4.20-5.50); Red Cell Distribution Width 13.6 % (11.0-16.0); White Blood Count 6.2 X10*3/uL (4.8-10.8)
[2023-09-08 12:39] LABS: Alanine Aminotransferase 9 U/L (0-31); Alkaline Phosphatase 64 U/L (39-117); Anion Gap 10 (12-20); Aspartate Amino Transferase 12 U/L (5-31); Bilirubin Total 0.5 mg/dL (0.0-1.0); Blood Urea Nitrogen 14 mg/dL (9-16); Calcium 9.5 mg/dL (8.4-10.2); Carbon Dioxide 27 mmol/L (22-29); Chloride 107 mmol/L (96-108); Cholesterol 155 mg/dL (<200); Estimated Glomerular Filt Rate > 60; Glucose Random 89 mg/dL (60-115); HDL Cholesterol 53 mg/dL (>40); LDL Cholesterol Calculated 84 mg/dL (<100); Potassium 4.2 mmol/L (3.3-5.1); Sodium 140 mmol/L (135-145); Total Protein 7.2 g/dL (6.5-8.0); Triglycerides 94 mg/dL (<150)
[2023-09-08 12:50] LABS: TSH reflex Free T4 1.87 uIU/mL (0.32-4.0)
== END 2023-09-08 09:49 | disposition home or self-care (01) ==
LOC: HO.HHCL 09:48
PROVIDERS: PCP General Practice; Visit Provider Internal Medicine Medical Oncology
DX: D50.8 Other iron deficiency anemias (principal)
CPT/HCPCS: 36415; 80053; 80061; 82306; 84443; 85025

== ENCOUNTER 2023-12-01 14:13 | Outpatient (AMB) | payer MEDICAID, SELFPAY ==
--- NOTE | 2023-12-01 14:28 | A.OFFVIS_ITS ---
Vital Signs 3 12/01/23 14:35 Height 5 ft 5 in Weight 169 lb BMI 28.1 BP 126/82 Blood Pressure Location Lt brachial Position Sitting Pulse 76 Intake Visit Reasons: 6 month breast exam Intake Note: Patient is seen in office for 6 month follow up visit, breast exam. Pt c/o: no concerns regarding her breast mm sched:03/30/24 Police Aide Required: No Exercise Specialist: Exercise Specialist Present Accompanied by: Self / Same As Patient Allergies No Known Allergies Allergy (Verified 12/01/23 14:32) Medication List - Last Reconciled 12/01/23 by Shan Ayers MD ascorbic acid (vitamin C) 500 mg PO DAILY aspirin (Stuart Low Dose Aspirin) 81 mg PO DAILY cholecalciferol (vitamin D3) 1,250 mcg PO DAILY raloxifene 60 mg PO DAILY rivaroxaban (Xarelto) 1 tab PO BEDTIME PRN rivaroxaban (Xarelto) 20 mg PO DAILY HPI Comments Details: 53-year-old female patient returning for a follow-up breast examination following a left breast invasive ductal carcinoma with DCIS, ER/[place] positive, HER2 Saw negative. Her initial mammogram revealed architectural distortion in the left breast in the subareolar location. Ultrasound-guided core biopsy at [facility] on 12/12/2020 revealed invasive ductal carcinoma, grade 1, with low- grade DCIS, solid type with single cell necrosis, ER/[place] positive, hER 2 Saw negative. She subsequent underwent a left breast lumpectomy with needle localization, sentinel node biopsy on 12/31/2020 revealed ductal carcinoma in- situ, nuclear grade 1 with positive superior margins. No definitive residual invasive ductal carcinoma was identified. Two sentinel nodes into additional axillary lymph nodes were negative for metastatic carcinoma. She underwent a wider excision on 01/12/2021 achieve negative DCIS margins. The pathology revealed usual ductal hyperplasia, radial scar, intraductal papilloma and scattered microcalcifications. Biopsy/prior procedure site with no residual carcinoma. Biopsy cavity was least 1.5 cm from the new margin. She underwent radiation therapy at [facility] which was completed on 04/02/2021. She is followed by Dr. Sparks and was subsequently started on Xarelto after developing a DVT. She is currently taking raloxifene and appears to tolerate this well. Her most recent mammogram of 10/14/2022 revealed noted significant changes with stable bilateral calcifications. Six-month follow-up diagnostic mammography was recommended (BI-RADS 3). This was subsequently performed on 03/29/2023 which revealed no significant change from the prior mammogram (BI-RADS 3). A follow- up bilateral mammography is recommended in 12 months. She mainly complains of discomfort in the left breast mostly in the upper inner quadrants. She denies any swelling in the arm or hands. She denies any new palpable mass in either breast. [facility] Medical History Factor V Leiden Heterozygous factor V Leiden mutation Hx of radiation therapy Internal hemorrhoids Family history of adverse response to anesthesia in father DVT (deep venous thrombosis) Surgical History History of lumpectomy of left breast Hx of shoulder surgery Family History Unknown No problems noted. Paternal Grandmother Diabetes Maternal Grandmother Diabetes Maternal Aunt Breast cancer Social History Household Members: Spouse and Children Housing: House Are you a primary urgent care nurse practitioner to a significant other at home: No Do you presently have visiting nurse or other home services: No Alcohol intake: never Patient Tobacco Use Status: Never used Tobacco Second Hand Smoke Exposure: No service: No Current occupational status: unemployed Female Reproductive History Menstrual Age of Menarche: 13 Review of Systems Const All systems reviewed & are unremarkable except as noted in HPI and below Card Denies chest pain, Denies rapid heart rate, Denies irregular heart rhythm and Denies dyspnea Resp Denies chest congestion, Denies cough and Denies dyspnea Denies nipple discharge Skin/Breast Denies breast swelling, Reports breast skin changes, Reports breast pain, Denies breast mass, Denies change in breast shape and Denies nipple discharge Mitchell/Lymph Details: Factor 5 Leiden Denies easy bleeding and Denies lymphadenopathy Physical Exam Const General: cooperative and no acute distress Nutritional Appearance: well nourished Orientation/consciousness: patient oriented x3 Limitations: no limitations Chest Other: Left breast with continued radiation changes involving the entire breast with decreased lymphedema around the nipple-areolar complex. Incision in the left axilla is soft and nontender; incision around the nipple is well healed. No palpable mass, skin change, nipple discharge, or palpable lymph node is appreciated. Tenderness is noted throughout the left breast consistent with radiation change. Right breast reveals no skin change, nipple discharge, palpable mass, or enlarged lymph nodes. Chest/axillae images: 2 1. 2. Resp Effort & Inspection: normal respiratory effort, no audible wheezes, no cough and no respiratory distress GI Inspection: Yes normal to inspection Skin Other: Warm, dry, no rash Neuro Other: Mobility Assessment: 1. 3 meter assessment time (seconds): 5 2. Gait observations: Normal balance and gait General: patient oriented x3 Extrem Other: No edema Assessment & Plan Assessment & Plan (1) Ductal carcinoma in situ (DCIS) of left breast: Code(s): D05.12 - Intraductal carcinoma in situ of left breast Category: Medical (2) Invasive ductal carcinoma of left breast, stage 1: Code(s): C50.912 - Malignant neoplasm of unspecified site of left female breast Category: Medical Plan 53-year-old female patient returning for follow-up breast examination after left breast lumpectomy with needle localization and sentinel node biopsy. Pathology revealed invasive ductal carcinoma with ductal carcinoma in situ. She required a wider excision to assure negative margins. She was evaluated by Dr. Sparks and was started on raloxifene. Radiation therapy was completed on 04/02/2021. Examination today revealed continued post therapy changes however no new suspicious findings were identified. Her most recent mammogram of 03/29/2023 revealed bilateral upper outer quadrant calcifications felt to be low suspicion for malignancy (BI-RADS 3). One year follow-up mammograms are scheduled in March 2024. I recommended follow-up examination in 6 months. She is welcome to call sooner for any new concerns. Coding Level of Care Code Est Pt Level 3 (55839) Diagnoses Ductal carcinoma in situ (DCIS) of left breast D05.12 Invasive ductal carcinoma of left breast, stage 1 C50.912
[2023-12-01 14:35] VITALS: BP 126/82; PULSE 76; BMI 28.1
== END 2023-12-01 14:44 | disposition home or self-care (01) ==
PROVIDERS: PCP General Practice; Visit Provider Surgery
DX: C50.912 Malignant neoplasm of unspecified site of left female breast (principal)
CPT/HCPCS: 99213

== ENCOUNTER → 2023-12-01 14:13 | Outpatient (BNVA) | payer MEDICAID, SELFPAY | PROVIDERS: PCP General Practice; Visit Provider Surgery | DX: C50.912 Malignant neoplasm of unspecified site of left female breast (principal); Z17.0 Estrogen receptor positive status [ER+] | CPT/HCPCS: 99212 ==

== ENCOUNTER 2023-12-12 15:34 | Outpatient (REF) | payer MEDICAID, SELFPAY ==
--- NOTE | ~2023-12-12 | XR_ITS ---
EXAMINATION: XR FOOT, RIGHT CLINICAL INFORMATION: Right foot pain, swelling, and tenderness. COMPARISON: None available. TECHNIQUE: AP, lateral, and oblique views of the right foot. FINDINGS: No acute fracture or dislocation. No joint space narrowing and marginal osteophytes. No osseous erosion. No abnormal soft tissue calcification. Dorsal forefoot soft tissue swelling. XR/XR foot RT min 3V IMPRESSION: Dorsal forefoot soft tissue swelling without acute osseous abnormality. Electronically signed by: Erik Jensen MD 01/02/2024 08:56 PM EDT
== END 2023-12-12 15:35 | disposition home or self-care (01) ==
LOC: HO.HHCX 15:34
PROVIDERS: Visit Provider General Practice
DX: M79.671 Pain in right foot (principal); R60.0 Localized edema
CPT/HCPCS: 73630

== ENCOUNTER 2024-02-28 14:27 | Outpatient (REF) | payer MEDICAID, SELFPAY ==
--- NOTE | ~2024-02-28 | MM_ITS ---
EXAMINATION: BONE DENSITOMETRY CLINICAL INDICATION: Osteopenia. COMPARISON: Baseline BD dated 01/20/2021. TECHNIQUE: Using a [employer] DXA System (software version: 13.1) manufactured by [employer], dual-energy x-ray absorptiometry was performed of the lumbar spine and left hip. The images are of good technical quality. Summary results are attached. FINDINGS: LEFT FEMUR, NECK: Current: BMD 0.902 g/cm2, Z-score -0.2, T-score -1.0, normal. Baseline: BMD 0.779 g/cm2. LEFT FEMUR, TOTAL: Current: BMD 0.838 g/cm2, Z-score -0.9, T-score -1.3, osteopenia, 10.0% increase from baseline (<5% change is not significant). Baseline: BMD 0.762 g/cm2. AP SPINE L1-L4: Current: BMD 1.030 g/cm2, Z-score -0.8, T-score -1.2, osteopenia, 8.0% decrease from baseline (<5% change is not significant). Baseline: BMD 1.120 g/cm2. IDENTIFIED RISK FACTORS: Menopause, ERT/SERMS. HISTORY OF FRACTURE: None listed. MEDICATIONS: Vitamin D. MM/XR DEXA axial skeleton IMPRESSION: 1. DIAGNOSIS: Osteopenia based on the lowest T-score value of -1.3 in the total femur applying World Health Organization criteria. 2. 10-YEAR FRACTURE RISK PREDICTION, FRAX: Not performed in this patient on estrogen or bone building treatments. 3. Treatment Recommendations: NOF guidelines recommend consideration for treatment in postmenopausal women and men age 50 and older presenting with the following: -A hip or vertebral (clinical or morphometric) fracture. -T-score less than or equal to -2.5 at the femoral neck or spine after appropriate evaluation to exclude secondary causes. -Low bone mass at the hip or spine and a 10-year fracture probability by FRAX of greater than or equal to 3% for hip fracture or greater than or equal to 20% for major osteoporotic fracture based on the [place] adapted WHO algorithm. 4. Other Recommendations: All treatment decisions require clinical judgment and consideration of individual patient factors, including patient preferences, comorbidities, previous drug use, risk factors not captured in the FRAX model (e.g. frailty, falls, vitamin D deficiency, increased bone turnover, interval significant decline in bone density) and possible under or overestimation of fracture risk by FRAX. Additional medical evaluation for secondary cause of low bone mineral density may be appropriate. FUTURE SCAN RECOMMENDATION: People with diagnosed cases of osteoporosis or at high risk for fracture should have regular bone mineral density tests. For patients eligible for Medicare, routine testing is allowed once every 2 years. The testing frequency can be increased to one year for patients who have rapidly progressing disease, those who are receiving or discontinuing medical therapy to restore bone mass, or have additional risk factors. Electronically signed by: Dilan Pittman MD 02/29/2024 09:37 AM ANTONIO UREÑA
== END 2024-02-28 14:28 | disposition home or self-care (01) ==
LOC: HO.MAMMO 14:27
PROVIDERS: PCP General Practice; Visit Provider Internal Medicine Medical Oncology
DX: M85.80 Other specified disorders of bone density and structure, unspecified site (principal)
CPT/HCPCS: 77080

== ENCOUNTER 2024-03-28 13:14 | Outpatient (REF) | payer MEDICAID, SELFPAY ==
--- NOTE | ~2024-03-28 | MM_ITS ---
EXAMINATION: MM DIAGNOSTIC DIGITAL BREAST TOMOSYNTHESIS, BILATERAL CLINICAL INFORMATION: History of left breast malignancy in 2020 status post lumpectomy. Bilateral upper outer grouped calcifications for which diagnostic magnification views were recommended. COMPARISON: Mammography: Comparison is made with relevant prior exams. TECHNIQUE: Digital breast mammography with tomosynthesis is performed in both the craniocaudal and mediolateral oblique views along with computer-aided detection (CAD). FINDINGS: There are scattered areas of fibroglandular density (ACR BI-RADS breast composition Category b). Postoperative changes in the left breast are stable. Faint grouped calcifications in the upper outer left breast and upper outer right breast are not significantly changed on magnification views dating back to 2020 and therefore benign. There are no significant masses, abnormal calcifications, or other abnormalities. Results are provided to the patient at time of visit by the technologist. MM/MM tomosynthesis diagnostic BI IMPRESSION: No mammographic evidence of malignancy. ASSESSMENT: BI-RADS BI-RADS 2 - Benign Findings RECOMMENDATION: 1 year F/U This patient's information was entered into a reminder system with a target due date for their next mammogram. Electronically signed by: Soledad Sandoval DO 03/28/2024 02:11 PM ANTONIO
== END 2024-03-28 13:15 | disposition home or self-care (01) ==
LOC: HO.MAMMO 13:14
PROVIDERS: PCP General Practice; Visit Provider General Practice
DX: C50.912 Malignant neoplasm of unspecified site of left female breast (principal)
CPT/HCPCS: 77062; 77066

== ENCOUNTER → 2024-03-28 13:30 | Outpatient (BNV) | payer MEDICAID, SELFPAY | PROVIDERS: PCP General Practice; Visit Provider Internal Medicine | DX: C50.912 Malignant neoplasm of unspecified site of left female breast (principal); R92.8 Other abnormal and inconclusive findings on diagnostic imaging of breast | CPT/HCPCS: 77062; 77066 ==

== ENCOUNTER 2024-07-26 12:29 | Outpatient (REF) | payer MEDICAID, SELFPAY ==
--- NOTE | ~2024-07-26 | US_ITS ---
EXAMINATION: US TRIPLEX LOWER EXTREMITY, LEFT CLINICAL INFORMATION: Edema, left lower extremity. COMPARISON: March 08, 2023. TECHNIQUE: Color-flow triplex imaging with spectral analysis and compression Doppler were performed on the left lower extremity. FINDINGS: Respiratory variation, normal compression and augmented flow are noted throughout the interrogated common femoral vein, superficial femoral vein, profunda femoral vein, popliteal vein and midcalf peroneal and posterior tibial venous segments . There is a 2.9 x 0.7 x 3.4 cm lobulated anechoic lesion without flow on color Doppler interrogation in the popliteal fossa. US/US venous duplex LE LT IMPRESSION: No acute deep venous thrombosis involving the left lower extremity. Negative for DVT. 3.4 cm popliteal cyst. Electronically signed by: Rahat Johnson MD 07/26/2024 01:04 PM EDT
--- OUTSIDE RECORDS SUMMARY | 2024-07-26 14:57 | XMS_ITS | Encounter Summary ---
Author Organization [employer] Address [address] [facility] [address] [place] [address] Care Team Providers Care Spring Assembler Name Role Phone Tita Duke MD Primary Care Provider [phone] Reason for Referral * Imaging (STAT) - Authorized Specialty Diagnoses / Procedures Referred By Contac t Referred To Contact Cardiology Diagnoses Localized swelling of left lower extremity Procedures VASC US Lower Extremity Venous Duplex Left Tita Duke MD [address] [place] [address] Phone: tel: fax: [address] Phone: tel: fax: Referral ID Status Reason Start Date Expiration Date Visits Requested Visits Authorized [id number] Authorized Perform Procedure 07/24/2024 07/24/2025 1 1 Encounter Details Date Type Department Care Team (Late st Contact Info) Description 07/23/2024 3:15 PM EDT Office Visit [facility] [address] [place], [place] [phone] Tita Duke MD [address] [place], [place] [phone] Localized swelling of left lower extremity (Primary Dx); Dietary counseling; Exercise counseling; Overweight; Infiltrating ductal carcinoma of left breast (CMS/HCC); Heterozygous factor V Leiden mutation (CMS/HCC); Osteopenia of multiple sites Social History Tobacco Use Types Packs/Day Years Used Date Smoking Tobacco: Never Passive Smoke Exposure: Never Smokeless Tobacco: Never Alcohol Use Standard Drinks/Week Comments Never 0 (1 standard drink = 0.6 oz pur e alcohol) Housing Stability Answer Date Recorded What is your housing situation today? I have andreea benedict 08/03/[address] you li ve. Do you have problems with any of the following? None of the above 08/03/2023 Food Insecurity Answer Date Recorded Within the past 12 months, y ou worried that your food would run out before you got money to buy more: Never True 02/14/2023 Within the past 12 months,th e food you bought just didn't last and you didn't have enough money to get more: Never True Transportation Answer Date Recorded In the past 12 months, has l ack of transportation kept you from medical appts, meetings, work or from getting things needed for daily living? No 07/23/2024 Utilities Answer Date Recorded In the past 12 months, has t he electric, gas, oil or water company threatened to shut off services in your home? No 02/14/2023 Depression Answer Date Recorded Patient Health Questionnaire-2 Score 0 07/23/2024 Internet Access Answer Date Recorded Internet Access Q1 Yes 01/06/2024 Internet Access Q2 Not on file 01/06/2024 Comments Unknown Sex and Gender Information Value Date Recorded Sex Assigned at Female 02/15/2022 10:37 AM EDT Legal Sex Female 10:37 AM EDT Gender Identity Female 02/15/2022 10:37 AM EDT Sexual Orientation Straight 02/15/2022 10 :37 AM EDT documented as of this encounter Last Filed Vital Signs Vital Sign Reading Time Taken Comments Blood Pressure 129/80 07/23/2024 3:15 PM EDT Pulse 82 07/23/2024 3:15 PM EDT Temperature 36.2 ??C (97.2 ??F) 07/23/2024 3:15 PM ED T Respiratory Rate 21 07/23/2024 3:15 PM EDT Oxygen Saturation 98% 07/23/2024 3:15 PM EDT Inhaled Oxygen Concentration - - Weight 77.6 kg (171 lb) 07/23/2024 3:15 PM EDT Height 162.6 cm (5' 4 ) 07/23/2024 3:15 PM EDT Body Mass Index 29.35 07/23/2024 3:15 PM EDT documented in this encounter Progress Notes * Tita Duke MD - 07/23/2024 3:15 PM EDT SUBJECTIVE: Keely Foy is a 54 y.o. year old female who presents for chronic disease management. Denies recentillness, ER visit, or hospitalization. Acute Concerns: Osteopenia based on the lowest T-score value of -1.3 in the total femur applying World Health Organization criteria. Start Ca and Mg 2. L calf swelling and redness x few weeks. Travelled to [place] in April Interim Updates and Plans: Left invasive ductal carcinoma: 04/[address] Ayers 52-year-old female patient returning for follow-up breast examination after left breast lumpectomywith needle localization and sentinel node biopsy. Pathology revealed invasive ductal carcinoma with ductal carcinoma in situ. She required a wider excision to assure negative margins. She has subsequently follow-up with Dr. Sparks and was started on raloxifene. She was also started on oral anticoagulation due to a DVT. Radiation therapy was completed on 04/02/2021. She has residual tenderness and inflammation from the surgical site and radiation therapy. Examination today revealed continued post therapy changes however no new suspicious findings were identified. Her most recent mammogram of 10/14/2022 revealed bilateral upper outer quadrant calcifications felt to be low suspicion for malignancy (BI-RADS 3). Six-month follow-up mammogram in Mar. Following with Dr Sparks for oncology, on raloxifine. Seen every 3 months for surveillance Denies current depression 08/2023 onc f/u Plan is for her to continue on the Raloxifene for now. Proceed with a bone mineral density. Cont taking the vitamin-D supplements. 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 Hx of DVT in the setting of Factor V Leiden def: currently on daily ASA and eliquis for travel ppx.No swelling or leg pain MILLER: much improved on iron, able to exercise three times a week with walking Anemia: resolved and Dr Sparks told her that she can stop folic acid and iron Uterine bleeding: patient reports she did not have a period since 04/07 but had one in 11/06. It was normal, lasted 5 days. Has not had one again since then. She has hx of breast cancer and is on ralonixifine. She saw her oncologist who suggested that she should be seen by gynecology, they ordered a pelvic ultrasound which showed endometrial stripe > 4mm, tried to EMB in office but were not able to perform it and she was referred to [facility]. Lichen simplex chronicus On L ankle, saw derm 09/2022 Cleared with betamethasone Health maintenance colon cancer- 03/2021, No polyps were detected, repeat in 10 years Paps- 09/2021 NIL and HPV neg, 08/2022 ASCUS and HPV neg Mammo- per breast surgeon Imms- due for zoster and COVID booster, declines today Patient Active Problem List Diagnosis Heterozygous factor V Leiden mutation (CMS/HCC) Infiltrating ductal carcinoma of breast (CMS/HCC) Eczema Screening for cervical cancer Varicose veins of both lower extremities with inflammation Iron deficiency anemia secondary to inadequate dietary iron intake Blurry vision Lichen planus Recurrent cold sores Right foot pain Postmenopausal bleeding Localized swelling of left lower extremity Osteopenia of multiple sites Past Surgical History: Procedure Laterality Date BREAST LUMPECTOMY Left 12/2020 Family History Problem Relation Name Age of Onset Parkinsonism Mother Stroke Father Social History Social History Narrative Lives with her and stepson from [place] originally Cooks most of her food herself Walks for exercise Review of Systems Constitutional: Negative. Respiratory: Negative. Cardiovascular: Negative. Musculoskeletal: Positive for myalgias. OBJECTIVE: Vitals: 07/23/24 1515 BP: 129/80 BP Location: Left arm Patient Position: Sitting BP Cuff Size: Adult Pulse: 82 Resp: 21 Temp: 97.2 ??F (36.2 ??C) TempSrc: Oral SpO2: 98% Weight: 171 lb (77.6 kg) Height: 5' 4 (1.626 m) Physical Exam Vitals and nursing note reviewed. Constitutional: Appearance: Normal appearance. HENT: Head: Normocephalic and atraumatic. Cardiovascular: Rate and Rhythm: Normal rate and regular rhythm. Pulses: Normal pulses. Heart sounds: Normal heart sounds. Pulmonary: Effort: Pulmonary effort is normal. Breath sounds: Normal breath sounds. Musculoskeletal: General: Swelling present. Left lower leg: Edema present. Comments: Tenderness in calf with palpation, neg Homans and no palpable cord, L calf is more swollen than R calf Skin: General: Skin is warm and dry. Neurological: General: No focal deficit present. Mental Status: She is alert and oriented to person, place, and time. Psychiatric: Mood and Affect: Mood normal. Behavior: Behavior normal. ASSESSMENT/PLAN Problem List Items Addressed This Visit Heterozygous factor V Leiden mutation (CMS/HCC) Infiltrating ductal carcinoma of breast (CMS/HCC) Localized swelling of left lower extremity - Primary Current Assessment & Plan DVT ultrasound ordered urgently, pt states she took her Lovenox on her flights to and from [place] Relevant Orders VASC US Lower Extremity Venous Duplex Left Osteopenia of multiple sites Current Assessment & Plan Vit D/Ca and Mg supplements Weight bearing exercise 4-5 times weekly Other Visit Diagnoses Dietary counseling Exercise counseling Overweight Follow Up: 4 months or sooner prn No Known Allergies Current Outpatient Medications: acyclovir (Zovirax) 5 % ointment, Apply topically every 3 (three) hours., Disp: , Rfl: aspirin 81 MG EC tablet, Take 1 tablet by mouth at bed time., Disp: , Rfl: betamethasone, augmented, (Diprolene) 0.05 % ointment, APPLY TOPICALLY IN THE MORNING, Disp: 45 g, Rfl: 1 cholecalciferol (Vitamin D-3) 25 MCG (1000 UT) tablet, Take 1,000 Units by mouth in the morning., Disp: , Rfl: Diclofenac Sodium 1 % gel, APPLY 4 G TOPICALLY 2 (TWO) TIMES A DAY., Disp: , Rfl: Enoxaparin Sodium 30 MG/0.3ML solution prefilled syringe, 20 mg., Disp: , Rfl: ferrous sulfate 325 (65 Fe) MG tablet, Take 1 tablet by mouth in the morning., Disp: , Rfl: folic acid (Folvite) 1 MG tablet, Take 1,000 mcg by mouth in the morning., Disp: , Rfl: lidocaine (Lidoderm) 5 % patch, APPLY 1 PATCH BY TRANSDERMAL ROUTE EVERY DAY (MAY WEAR UP TO 12 HOURS), Disp: 30 patch, Rfl: 1 meloxicam (Mobic) 7.5 MG tablet, Take 1 tablet (7.5 mg) by mouth Once per day., Disp: 60 tablet, Rfl: 11 raloxifene (Evista) 60 MG tablet, TAKE 1 TABLET BY MOUTH EVERY DAY, Disp: 90 tablet, Rfl: 3 triamcinolone (Kenalog) 0.1 % cream, Apply topically if needed in the morning and at bedtime (pain and swelling)., Disp: 30 g, Rfl: 2 Xarelto 20 MG tablet, PLEASE SEE ATTACHED FOR DETAILED DIRECTIONS, Disp: , Rfl: Japanese Translation: Patient is bilingual and declines translation services documented in this encounter Miscellaneous Notes * Assessment & Plan Note - Tita Duke MD - 07/24/2024 12:30 PM EDT Associated Problem(s): Localized swelling of left lower extremity DVT ultrasound ordered urgently, pt states she took her Lovenox on her flights to and from [place] * Assessment & Plan Note - Tita Duke MD - 07/24/2024 12:29 PM EDT Associated Problem(s): Osteopenia of multiple sites Vit D/Ca and Mg supplements Weight bearing exercise 4-5 times weekly documented in this encounter Plan of Treatment Not on file documented as of this encounter Visit Diagnoses Diagnosis Localized swelling of left lower extremity- Primary Dietary counseling Dietary surveillance and counseling Exercise counseling Overweight Infiltrating ductal carcinoma of left breast (CMS/HCC) Heterozygous factor V Leiden mutation (CMS/HCC) Primary hypercoagulable state Osteopenia of multiple sites documented in this encounter Care Teams Spring Assembler Relationship Specialty Start Date End Date Tita Duke MD [address] [place] [id number] PCP - General Family Medicine 01/14/22 documented as of this encounter
--- OUTSIDE RECORDS SUMMARY | 2024-07-26 14:58 | XMS_ITS | Encounter Summary ---
Author Organization [employer] Address [address] [place] [address] [address] [place] [address] Care Team Providers Care Global Account Director Name Role Phone Tita Duke MD Primary Care Provider [phone] Encounter Details Date Type Department Care Team (Late st Contact Info) Description 10/28/2022 Orders Only [facility] [address] [place] [address] Provider, MD Akira Social History Tobacco Use Types Packs/Day Years Used Date Smoking Tobacco: Never Passive Smoke Exposure: Never Smokeless Tobacco: Never Alcohol Use Standard Drinks/Week Comments Never 0 (1 standard drink = 0.6 oz pur e alcohol) Depression Answer Date Recorded Patient Health Questionnaire-2 Score 0 08/18/2022 Comments Unknown Sex and Gender Information Value Date Recorded Sex Assigned at Female 02/15/2022 10:37 AM EDT Legal Sex Female 10:37 AM EDT Gender Identity Female 02/15/2022 10:37 AM EDT Sexual Orientation Straight 02/15/2022 10 :37 AM EDT documented as of this encounter Plan of Treatment Not on file documented as of this encounter Procedures Procedure Name Priority Date/Time Associated Diagnosis Comments HM MAMMOGRAPHY Routine 10/14/2022 documented in this encounter Results * Hm Mammography (10/14/2022) Anatomical Region Laterality Modality Other Historical Provider HEALTH MAINTENANCE Final Result documented in this encounter Visit Diagnoses Not on filedocumented in this encounter Care Teams Global Account Director Relationship Specialty Start Date End Date Tita Duke MD [address] [place] [address] PCP - General Family Medicine 01/14/22 documented as of this encounter
--- OUTSIDE RECORDS SUMMARY | 2024-07-26 14:58 | XMS_ITS | Clinical Summary ---
Author Organization [employer] Address [address] [facility] 7[address] [place] [address] Care Team Providers Care Precision Dyer Name Role Phone Tita Duke MD Primary Care Provider [phone] Allergies No known active allergies Medications acyclovir (Zovirax) 5 % ointment Apply topically every 3 (three) hours. 1 Active aspirin 81 MG EC tablet Take 1 tablet by mouth at bed time. Active cholecalciferol (Vitamin D-3) 25 MCG (1000 UT) tablet Take 1,000 Units by mouth in the morning. Active Enoxaparin Sodium 30 MG/0.3ML solution prefilled syringe 20 mg. Active triamcinolone (Kenalog) 0.1 % cream Apply topically if needed in the morning and at bedtime (pain and swelling). 30 g 2 3 Active lidocaine (Lidoderm) 5 % patch APPLY 1 PATCH BY TRANSDERMAL ROUTE EVERY DAY (MAY WEAR UP TO 12 HOURS) 30 patch 1 3 Active ferrous sulfate 325 (65 Fe) MG tablet Take 1 tablet by mouth in the morning. 3 Active folic acid (Folvite) 1 MG tablet Take 1,000 mcg by mouth in the morning. 3 Active Xarelto 20 MG tablet PLEASE SEE ATTACHED FOR DETAILED DIRECTIONS 3 Active betamethasone, augmented, (Diprolene) 0.05 % ointmentIndicat ions:Lichen simplex chronicus APPLY TOPICALLY IN THE MORNING 45 g 1 3 Active meloxicam (Mobic) 7.5 MG tablet Take 1 tablet (7.5 mg) by mouth Once per day. 60 tablet 11 4 01/04/20 25 Active raloxifene (Evista) 60 MG tablet TAKE 1 TABLET BY MOUTH EVERY DAY 90 tablet 3 5 Active Diclofenac Sodium 1 % gel APPLY 4 G TOPICALLY 2 (TWO) TIMES A DAY. Active Active Problems Problem Noted Date Diagnosed Date Localized swelling of left lower extremity 07/24 Assessment & Plan (07/24/2024 12:30 PM EDT): DVT ultrasound ordered urgently, pt states she took her Lovenox on her flights to and from [place] Osteopenia of multiple sites 07/24/2024 Assessment & Plan (07/24/2024 12:29 PM EDT): Vit D/Ca and Mg supplements Weight bearing exercise 4-5 times weekly Right foot pain 01/16/2024 Assessment & Plan (01/16/2024 3:04 PM EDT): Trial Arnica gel, OTC Continue light stretching and exercise as tolerated Call Dr Lua's office to make podiatry appointment Recurrent cold sores 04/29/2023 Blurry vision 03/07/2023 Lichen planus 03/07/2023 Assessment & Plan (08/05/2023 9:11 AM EDT): Cleared with betamethasone Iron deficiency anemia halinaon osman to inadequate dietary iron intake 11/29/2022 Assessment & Plan (08/05/2023 9:11 AM EDT): Stopped iron supplements Feels well in terms of breathing, even with exercise Will try to get iron in her diet Varicose veins of both lower extremities with in flammation 08/20/2022 Assessment & Plan (08/20/2022 12:24 PM EDT): Refer to vascular surgery Screening for cervical cancer 08/18/2022 Assessment & Plan (08/20/2022 12:25 PM EDT): Pap 09/2021 NIL/HPV neg Will contact when results are available Postmenopausal bleeding 08/12/2022 Overview (07/23/2024): Last Assessment & Plan: I reviewed with the patient that, although she has a menstrual history of <1 year without menses, labwork demonstrated elevated FSH consistent with menopausal status. Endometrial stripe just under 4mm is borderline, therefore it would be reasonable to expectantly manage and if further bleeding can be evaluated with hysteroscopic guided D&C under anesthesia. The patient was anticipating repeating biopsy today and requested to proceed with biopsy. Unfortunately in office EMB unsuccessful due to cervical stenosis. Patient was given option of expectant management at this point vs hysteroscopy. She prefers to continue with expectant management at this time. She will return if she experiences any further bleeding. All questions answered. Eczema 05/26/2022 Assessment & Plan (08/20/2022 12:24 PM EDT): Will refer to derm for lack of response to steroid cream Assessment & Plan (05/26/2022 6:40 AM EST): Steroid cream prn for up to 14 days Heterozygous factor V Leiden mutation 01/01/2021 Assessment & Plan (08/05/2023 9:05 AM EDT): Will use Eliquis when she goes on plane trip to [place] in September Assessment & Plan (11/29/2022 9:20 AM EDT): Will use Eliquis when she goes on plane trip to [place] in Dec Assessment & Plan (05/26/2022 6:40 AM EST): Cont followup with Heme ASA daily for prophylaxis Eliquis when traveling Infiltrating ductal carcinoma of breast 01/02/20 Assessment & Plan (08/05/2023 9:11 AM EDT): Dx'd via US guided biopsy at [facility] 11/2020 s/p left lumpectomy and radiation Now on raloxifene & tolerating well. Mood is good exercising 3 x per week f/u w/ Dr. Sparks every 3 months f/u with me every 4 months Assessment & Plan (11/29/2022 9:19 AM EDT): Dx'd via US guided biopsy at [facility] 11/2020 s/p left lumpectomy and radiation Now on raloxifene & tolerating well. Mood is good exercising 3 x per week f/u w/ Dr. Sparks every 3 months f/u with me in 4-6 months Assessment & Plan (05/26/2022 6:41 AM EST): Dx'd via US guided biopsy at [facility] 11/2020 s/p left lumpectomy and radiation Now on raloxifene & tolerating well. Mood is good exercising 3 x per week f/u w/ Dr. Sparks every 3 months f/u with me in 6 months Encounters Date Type Department Care Team Description 07/26/2024 Orders Only [facility] [address] [place] [address] Tita Duke MD 07/23/2024 3:15 PM EDT Office Visit [facility] [address] [place] [address] Tita Duke MD Localized swelling of left lower extremity (Primary Dx); Dietary counseling; Exercise counseling; Overweight; Infiltrating ductal carcinoma of left breast (CMS/HCC); Heterozygous factor V Leiden mutation (CMS/HCC); Osteopenia of multiple sites 07/23/2024 Telephone [facility] [address] [place] [address] Tita Duke MD Medication Question 07/23/2024 Travel 07/03/2024 Patient Outreach [facility] [address] [place] [address] Tita Duke MD Transition Of Care (Tcm) (HDF unscheduled. ) 06/29/2024 Population Health Risk Score [facility] Department [address] [place] [id number] Provider, Population Health Generic 06/09/2024 Refill [facility] [address] [place] [address] Tita Duke MD 05/24/2024 Telephone [facility] [address] [place] [address] Anne Abbott [place] recall from Last 3 Months Immunizations Name Administration Dates Next Due INFLUENZA INJECTABLE QUADRIV ALANT CCIIV4 MDCK Multi-dose vial 01/08/2020 Influenza Injectable Quadriv alant Preservative Free IIV4 MDCK 01/02/2023 Influenza injectable quadriv alent preservative free 02/03/2022,03/11/2021,02/24/2019 Influenza, Injectable, MDCK, preservative free 01/01/2024 Tdap 01/13/2022 Zoster, Recombinant 05/24/2022 Family History Medical History Relation Name Comments Stroke Father Parkinsonism Mother Relation Name Status Comments Father Mother Social History Tobacco Use Types Packs/Day Years Used Date Smoking Tobacco: Never Passive Smoke Exposure: Never Smokeless Tobacco: Never Tobacco Cessation:Counseling Given: Not Answered Alcohol Use Standard Drinks/Week Comments Never 0 [...] Orientation Straight 02/15/2022 10 :37 AM EDT Last Filed Vital Signs Vital Sign Reading [...] Mass Index 29.35 07/23/2024 3:15 PM EDT Plan of Treatment Health Maintenance Due Date Last Done Comments CT Colonography 1968 FIT DNA/Cologuard 1968 FIT 1968 FOBT 1970 HIV Screening 1970 Sigmoidoscopy 1968 Hepatitis B Vaccines (1 of 3 - 19+ 3-dose series) 1987 Pneumococcal Vaccine: 50+ Years (1 of 1 - PCV) 2018 Zoster Vaccines (2 of 2) 07/19/2022 05/24/2022 COVID-19 Vaccine ( season) 2023 04/09/2021, 08/20/2020, 07/30/2020 Mammogram 03/28/2025 03/28/2024, 03/18, 10/14/2022, Additional history exists Alcohol/Substance Use Screening 07/23/2025 07/23/2024 Depression Screening 07/23/2025 07/23/2024, 07/24/19 25 SDOH Screening 07/23/2025 07/23/2024 Tobacco Screening 07/23/2025 07/23/2024 Pap Smear 08/18/2025 08/18/2022, 05/0 06/2022, 08/18/2022, Additional history exists Cervical Cancer Screening 08/19/2027 HPV/Cotest 08/19/2027 08/18/2022, 05/0 06/2022, 09/28/2021, Additional history exists Colonoscopy 05/02/2030 05/02/2020 Colorectal Cancer Screening 05/02/2030 DTaP/Tdap/Td Vaccines (2 - Td or Tdap) 01/14/2032 01/13/2022 RSV Patients and Patients Aged 60 years or older (1 - 1-dose 75+ series) 2043 Hepatitis C Screening Completed 02/06/2020 Influenza Vaccine Completed 01/01/2024, , 02/03/2022, Additional history exists HIB Vaccines Aged Out No longer eligi ble based on patient's age to complete this topic HPV Vaccines Aged Out No longer eligi ble based on patient's age to complete this topic Hepatitis A Vaccines Aged Out No long er eligible based on patient's age to complete this topic IPV Vaccines Aged Out No longer eligi ble based on patient's age to complete this topic Meningococcal Vaccine Aged Out No chico preeti eligible based on patient's age to complete this topic RSV under 20 months Aged Out No longe r eligible based on patient's age to complete this topic Rotavirus Vaccines Aged Out No longer eligible based on patient's age to complete this topic Procedures Procedure Name Priority Date/Time Associated Diagnosis Comments US VENOUS DUPLEX LE LT Routine 12:43 PM EDT BI MAMMOGRAM DIAGNOSTIC TOMOSYNTHESIS BILATERAL Routine 03/28/2024 1:30 PM EST THINPREP IMAGING PAP AND HPV MRNA E6/E7 WITH REFLEX TO HPV 16,18/45 Routine 08/18/2022 4:25 PM EDT Screening for cervical cancer HM PAP/HPV Routine 08/18/2022 HM COLONOSCOPY Routine 05/02/2020 ZZZ HISTORICAL HEPATITIS C AB W/REFL TO HCV RNA, QN, PCR Routine 02/06/2020 8:59 AM EDT from Last 3 Months or Most Recently Relevant to Health Maintenance Results * US VENOUS DUPLEX LE LT (07/26/2024 12:43 PM EDT) Anatomical Region Laterality Modality Abdomen Ultrasound 07/26/2024 12:4 3 PM EDT Narrative 07/26/2024 1:07 PM EDT ? [facility] ?[address] ?[place] [address] ? Ultrasound Report ? Signed ? Patient: Danii,Ghida ?MR#: [id number] ? : 1970 ?Acct:[id number] ? Age/Sex: 54 / F ?ADM Date: 07/26/24 ? Loc: HO.US ? Attending Dr: Tita Duke MD ? Ordering Physician: Tita Duke ?? Date of Service: 07/26/24 ?? Procedure(s): US venous duplex LE LT ?? Accession Number(s): [id number] ? cc: Tita Duke ? EXAMINATION: ?? US TRIPLEX LOWER EXTREMITY, LEFT ? CLINICAL INFORMATION: ?? Edema, left lower extremity. ? COMPARISON: ?? March 08, 2023. ? TECHNIQUE: ?? Color-flow triplex imaging with spectral analysis and compression ?? Doppler were performed on the left lower extremity. ? FINDINGS: ?? Respiratory variation, normal compression and augmented flow are noted ?? throughout the interrogated common femoral vein, superficial femoral ?? vein, profunda femoral vein, popliteal vein and midcalf peroneal and ?? posterior tibial venous segments . ? There is a 2.9 x 0.7 x 3.4 cm lobulated anechoic lesion without flow on ?? color Doppler interrogation in the popliteal fossa. ? US/US venous duplex LE LT ?? IMPRESSION: ?? No acute deep venous thrombosis involving the left lower extremity. ?? Negative for DVT. ?? 3.4 cm popliteal cyst. ? Electronically signed by: ??Rahat Johnson MD ??07/26/2024 01:04 PM ?? EDT RP ? Dictated By: ?Rahat Torre MD ? Signed By: ?<Electronically signed by Rahat Bates MD in OV> ? /02/09 1304 ? DD/ 1243 ? TD/TT: 07/26/24 1250 ? Racing Board Marker: ? Procedure Note Yesy Robles - 07/26/[address] [address] Ultrasound Report Signed Patient: Keely FoyMR#: [id number] : 1970Acct:[id number] Age/Sex: 54 / FADM Date: 07/26/24 Loc: HO.US Attending Dr: Tita Duke MD Ordering Physician: Tita Duke Date of Service: 07/26/24 Procedure(s): US venous duplex LE LT Accession Number(s): [id number] cc: Tita Duke EXAMINATION: US TRIPLEX LOWER EXTREMITY, LEFT CLINICAL INFORMATION: Edema, left lower extremity. COMPARISON: March 08, 2023. TECHNIQUE: Color-flow triplex imaging with spectral analysis and compression Doppler were performed on the left lower extremity. FINDINGS: Respiratory variation, normal compression and augmented flow are noted throughout the interrogated common femoral vein, superficial femoral vein, profunda femoral vein, popliteal vein and midcalf peroneal and posterior tibial venous segments . There is a 2.9 x 0.7 x 3.4 cm lobulated anechoic lesion without flow on color Doppler interrogation in the popliteal fossa. US/US venous duplex LE LT IMPRESSION: No acute deep venous thrombosis involving the left lower extremity. Negative for DVT. 3.4 cm popliteal cyst. Electronically signed by: Rahat Johnson MD 07/26/2024 01:04 PM EDT Dictated By: Rahat Torre MD Signed By: <Electronically signed by Rahat Bates MDin OV> 07/26/24 1304 DD/ 1243 TD/TT: 07/26/24 1250 Racing Board Marker: Tita Duke MD IMG US PROCEDURES Final Result * BI Mammogram Diagnostic Tomosynthesis Bilateral (03/28/2024 1:30 PM EST) Anatomical Region Laterality Modality Breast Bilateral Mammography 03/28/2024 1:30 PM EST Narrative 03/28/2024 2:14 PM EST ? [place] [facility] ? [address] ?[place] [address] ? Mammography Report ? Signed ? Patient: Danii,Ghida ?MR#: [id number] ? : 1970 ?Acct:[id number] ? Age/Sex: 53 / F ?ADM Date: 03/28/24 ? Loc: HO.MAMMO ? Attending Dr: Tita Duke MD ? Ordering Physician: Aurora Sparks MD ?Results: 2Benig ?? n Findings ? Date of Service: 03/28/24 ?Follow Up: 1 Year From Orig ?? inal Mammogram ? Procedure(s): MM tomosynthesis diagnostic BI ?? Accession Number(s): [id number] ? cc: Tita Duke; Aurora Sparks MD ? EXAMINATION: ?? MM DIAGNOSTIC DIGITAL BREAST TOMOSYNTHESIS, BILATERAL ? CLINICAL INFORMATION: ? History of left breast malignancy in 2020 status post lumpectomy. ?? Bilateral upper outer grouped calcifications for which diagnostic ?? magnification views were recommended. ? COMPARISON: ?? Mammography: Comparison is made with relevant prior exams. ? TECHNIQUE: ?? Digital breast mammography with tomosynthesis is performed in both the ?? craniocaudal and mediolateral oblique views along with computer-aided ?? detection (CAD). ? FINDINGS: ?? There are scattered areas of fibroglandular density (ACR BI-RADS breast ?? composition Category b). ?? Postoperative changes in the left breast are stable. ?? Faint grouped calcifications in the upper outer left breast and upper ?? outer right breast are not significantly changed on magnification views ?? dating back to 2020 and therefore benign. ?? There are no significant masses, abnormal calcifications, or other ?? abnormalities. ? Results are provided to the patient at time of visit by the ?? technologist. ? MM/MM tomosynthesis diagnostic BI ?? IMPRESSION: ?? No mammographic evidence of malignancy. ? ASSESSMENT: ? BI-RADS BI-RADS 2 - Benign Findings ? RECOMMENDATION: ?? 1 year F/U ? This patient's information was entered into a reminder system with a ?? target due date for their next mammogram. ? Electronically signed by: ??Soledad Sandoval DO ??03/28/2024 02:11 PM EST ?? RP ? Dictated By: ?Soledad Sandoval DO ? Signed By: ?<Electronically signed by Soledad Sandoval, in OV> ? 03/28/24 1411 ? DD/ 1330 ? TD/TT: 03/28/24 1405 ? Racing Board Marker: ? Procedure Note Nileter, Image - 03/28/2024 [facility] [address] [place] [address] Mammography Report Signed Patient: Mackenzie Foy#: [id number] : 1970Acct:[id number] Age/Sex: 53 / FADM Date: 03/28/24 Loc: HO.MAMMO Attending Dr: Tita Duke MD Ordering Physician: Aurora Sparks MDResults: 2Benig n Findings Date of Service: 03/28/24Follow Up: 1 Year From Orig inal Mammogram Procedure(s): MM tomosynthesis diagnostic BI Accession Number(s): [id number] cc: Tita Duke; Aurora Sparks MD EXAMINATION: MM DIAGNOSTIC DIGITAL BREAST TOMOSYNTHESIS, BILATERAL CLINICAL INFORMATION: History of left breast malignancy in 2020 status post lumpectomy. Bilateral upper outer grouped calcifications for which diagnostic magnification views were recommended. COMPARISON: Mammography: Comparison is made with relevant prior exams. TECHNIQUE: Digital breast mammography with tomosynthesis is performed in both the craniocaudal and mediolateral oblique views along with computer-aided detection (CAD). FINDINGS: There are scattered areas of fibroglandular density (ACR BI-RADS breast composition Category b). Postoperative changes in the left breast are stable. Faint grouped calcifications in the upper outer left breast and upper outer right breast are not significantly changed on magnification views dating back to 2020 and therefore benign. There are no significant masses, abnormal calcifications, or other abnormalities. Results are provided to the patient at time of visit by the technologist. MM/MM tomosynthesis diagnostic BI IMPRESSION: No mammographic evidence of malignancy. ASSESSMENT: BI-RADS BI-RADS 2 - Benign Findings RECOMMENDATION: 1 year F/U This patient's information was entered into a reminder system with a target due date for their next mammogram. Electronically signed by: Soledad Sandoval DO 03/28/2024 02:11 PM [facility] Dictated By: Soledad Sandoval DO Signed By: <Electronically signed by Soledad Sandoval DO in OV> 03/28/24 1411 DD/ 1330 TD/TT: 03/28/24 1405 Racing Board Marker: [facility] External Provider IMG BI PROCEDURES Final Result * (ABNORMAL) Thinprep TIS PAP And HPV mRNA E6/E7 With Reflex To HPV 16,18/45 (08/18/2022 4:25 PM EDT) Clinical Information: 52YO F, POST-MENOPAUSAL [facility] LMP: NONE GIVEN [facility] Prev. PAP: NONE GIVEN [facility] Prev. BX: NO [facility] SOURCE: None given [facility] Statement Of Adequacy: [facility] Comment: Satisfactory for evaluation. Endocervical/transformation zone component present. General Categorization: EPITHELIAL CELL ABNORMALITY(A) [facility] Interpretation/R esult: Atypical Squamous Cells of Undetermined Significance (ASC-US)(A) [facility] COMMENT: This Pap test has been evaluated with computer assisted technology. Sepior Video Specialist : [facility] Comment: DCR, CT(ASCP) CT screening location: [address] ??[address] PATHOLOGIST: [facility] Comment: Martha Hawley M.D. Direct , Board Certified in Anatomic and Clinical Pathology and Cytopathology (electronic signature) Consulting Pathologist [facility] [address] [place] [address] [phone] (Always Message) [facility] Comment: EXPLANATORY NOTE: The Pap is a screening test for cervical cancer. It is not a diagnostic test and is subject to false negative and false positive results. It is most reliable when a satisfactory sample, regularly obtained, is submitted with relevant clinical findings and history, and when the Pap result is evaluated along with historic and current clinical information. HPV nRNA E6/E7 Not Detected Not Detected [facility] Comment: Methodology: Photo Technologist-Mediated Amplification This assay detects E6/E7 viral messenger RNA (mRNA) from 14 high-risk HPV types (16,18,31,33,35,39,45,51,52,56,58,59,66,68). Cervical sources are required for HPV testing. If a vaginal source from a patient who has had a total hysterectomy with removal of cervix was submitted, please contact the testing laboratory for alternative testing options. For additional information, please refer to http://education.Mengcao/faq/VHZ190g7 (This link if provided for information/ educational purposes only.) Genital 08/18/2022 4:25 PM EDT 08/20/2022 7:52 AM EDT Result [facility] Tita Duke MD LAB PATHOLOGY ORDERABLES Edite d Result - Final [facility] [address], [place] [address] * (ABNORMAL) Pap Smear (08/18/2022) Pap Epithelial cell abnormality(A ) Negative for intraephithelial lesion or malignancy, Other HPV Undetected 08/18/2022 Narrative Josefina Little RN - 08/26/2022 9:20 AM EDT Atypical Squamous Cells of Undetermined Significance (ASC-US) Abnormal Result [facility] Tita Duke MD HEALTH MAINTENANCE Final Resul t * Hm Colonoscopy (05/02/2020) Historical Provider HEALTH MAINTENANCE Final Result * HEPATITIS C AB W/REFL TO HCV RNA, QN, PCR (02/06/2020 8:59 AM EDT) HEPATITIS C ANTIBODY NON-REACT MARY NON-REACT MARY [facility] INDEX 0.01 <1.00 [facility] Comment: ?? HCV antibody was non-reactive. There is no laboratory ?? evidence of HCV infection. ?? In most cases, no further action is required. However, if recent HCV exposure is suspected, a test for HCV RNA (test code 22030) is suggested. ?? For additional information please refer to http://[employer].Mengcao/faq/XMI86d1 (This link is being provided for informational/ educational purposes only.) ?? HEPATITIS C ANTIBODY NON-REACT MARY NON-REACT MARY [facility] INDEX 0.01 <1.00 [facility] Comment: ?? HCV antibody was non-reactive. There is no laboratory ?? evidence of HCV infection. ?? In most cases, no further action is required. However, if recent HCV exposure is suspected, a test for HCV RNA (test code 33277) is suggested. ?? For additional information please refer to http://[employer].Mengcao/faq/EMZ12s1 (This link is being provided for informational/ educational purposes only.) ?? 02/06/2020 8:59 AM EDT Historical Provider HISTORICAL/NON ORDERABLE LABS Final Result [facility] [address] from Last 3 Months or Most Recently Relevant to Health Maintenance Insurance [employer] [facility] C3 Care Teams Precision Dyer Relationship Specialty Start Date End Date Tita Duke MD [address] [place] [phone] PCP - General Family Medicine 01/14/22
--- OUTSIDE RECORDS SUMMARY | 2024-07-26 14:58 | XMS_ITS | Encounter Summary ---
Author Organization [employer] Address [address] [place] [address] Care Team Providers Care It Risk Advisor Name Role Phone Tita Duke MD Primary Care Provider [phone] Encounter Details Date Type Department Care Team (Late st Contact Info) Description 07/26/2024 Orders Only [facility] [address] [place], [place] [phone] Tita Duke MD [address] [place], [place] [phone] Social History Tobacco Use Types Packs/Day Years [...] Comments US VENOUS DUPLEX LE LT Routine 07/26/2024 12:43 PM EDT documented in this encounter Results * US VENOUS DUPLEX LE LT (07/26/2024 12:43 PM EDT) Anatomical Region Laterality Modality Abdomen Ultrasound 07/26/2024 12:4 3 PM EDT Narrative 07/26/2024 1:07 PM EDT ? [facility] ?[address] ?[place] [address] ? Ultrasound Report ? Signed ? Patient: Keely Foy ?MR#: [id number] ? : 1970 ?Acct:[id number] ? Age/Sex: 54 / F ?ADM Date: 07/26/24 ? Loc: HO.US ? Attending Dr: Tita Duke MD ? Ordering Physician: Tita Duke ?? Date of Service: 07/26/24 ?? Procedure(s): US venous duplex LE LT ?? Accession Number(s): [id number] ? cc: Tita Duke ? EXAMINATION: ?? [...] by Rahat Bates MD in OV> ? 07/26/24 1304 ? DD/ 1243 ? TD/TT: 07/26/24 1250 ? Pull Out Operator: ? Procedure Note Donotannemarieter, Image - 07/26/2024 [place] [address] Ultrasound Report Signed Patient: Keely FoyMR#: [id number] : 1970Acct:[id number] Age/Sex: 54 / FADM Date: 07/26/24 Loc: HO.US Attending Dr: Tita Duke MD Ordering Physician: Tita Duke Date of Service: 07/26/24 Procedure(s): US venous duplex LE LT Accession Number(s): [id number] cc: Tita Duke EXAMINATION: US TRIPLEX LOWER [...] Rahat Johnson MD 07/26/2024 01:04 PM EDT RP Dictated By: Rahat Torre MD Signed By: <Electronically signed by Rahat Bates MDin OV> 07/26/24 1304 DD/ 1243 TD/TT: 07/26/24 1250 Pull Out Operator: us Tita Duke MD IM US PROCEDURES Final Result documented in this encounter Visit Diagnoses Not on filedocumented in this encounter Care Teams It Risk Advisor Relationship Specialty Start Date End Date Tita Duke MD [address] [place] [phone] PCP - General Family Medicine 01/14/22 documented as of this encounter
--- OUTSIDE RECORDS SUMMARY | 2024-07-26 14:58 | XMS_ITS | Encounter Summary ---
Author Organization [employer] Address [address] [place] [address] 7t [place] [address] Care Team Providers Care Turbine Engine Assembler Name Role Phone Tita Duke MD Primary Care Provider [phone] Encounter Details Date Type Department Care Team (Late st Contact Info) Description 12/21/[address] [facility] MEDICINE [address] [place], [place] [phone] Provider, MD Akira Social History Tobacco Use [...] Name Priority Date/Time Associated Diagnosis Comments HM COLONOSCOPY Routine 05/02/2020 documented in this encounter Results * Hm Colonoscopy (05/02/2020) Historical Provider HEALTH MAINTENANCE Final Result documented in this encounter Visit Diagnoses Not on filedocumented in this encounter Care Teams Turbine Engine Assembler Relationship Specialty Start Date End Date Tita Duke MD [address] [place], [place] [phone] PCP - General Family Medicine 01/14/22 documented as of this encounter
--- OUTSIDE RECORDS SUMMARY | 2024-07-26 14:58 | XMS_ITS | Encounter Summary ---
Author Organization [email or web address] Address [address] 7t [place] [address] Care Team Providers Care Meal Cooker Name Role Phone Tita Duke MD Primary Care Provider Encounter Details Date Type Department Care Team (Latest Contact Info) Description 07/23/2024 Travel Social History Tobacco Use Types Packs/Day Years [...] documented as of this encounter Visit Diagnoses Not on filedocumented in this encounter Care Teams Meal Cooker Relationship Specialty Start Date End Date Tita Duke MD [address] [place] [address] PCP - General Family Medicine 01/14/22 documented as of this encounter
--- OUTSIDE RECORDS SUMMARY | 2024-07-26 14:58 | XMS_ITS | Clinical Summary ---
Author Organization 175 [facility] Address 175 [place] [address] Phone Care Team Providers Care Manager Administration Name Role Phone Tita Duke MD Primary Care Provider [phone] Allergies No known active allergies Medications ascorbic acid (VITAMIN C) 500 mg tablet Take 1 tablet (500 mg total) by mouth 1 (one) time each day. Active aspirin (Vazalore) 81 mg capsule Take by mouth. Acti ve cholecalciferol (VITAMIN D3) 1,250 mcg (50,000 unit) tablet Take by mouth. Activ e ferrous sulfate 325 mg (65 mg elemental iron) tablet Take 1 tablet (325 mg total) by mouth 1 (one) time each day. Active folic acid (FOLVITE) 1 mg tablet Take 1 tablet (1,000 mcg total) by mouth 1 (one) time each day. Active raloxifene (EVISTA) 60 mg tablet Take 1 tablet (60 mg total) by mouth 1 (one) time each day. Active rivaroxaban (XARELTO) 20 mg tablet Take 1 tablet (20 mg total) by mouth as needed. Active diclofenac (Voltaren Arthritis Pain) 1 % topical gel Apply 4 g topically 2 (two) times a day. 240 g 1 5 08/11/19 25 Active Active Problems Problem Noted Date Diagnosed Date Postmenopausal bleeding 08/12/2022 Overview (02/24/2024): Last Assessment & Plan: I reviewed with [...] experiences any further bleeding. All questions answered. Encounters Date Type Department Care Team Description 07/18/2024 10:30 AM EDT Treatment [address] [phone] Darleen Paul, PT Tendonitis, Achilles, right (Primary Dx) 07/09/2024 11:00 AM EDT Treatment [address] [phone] Shruti Robert, PT Tendonitis, Achilles, right (Primary Dx) 07/05/2024 11:15 AM EDT Treatment [address] [phone] Rusty Fitzgerald, RN ON SITE Tendonitis, Achilles, right (Primary Dx) 07/03/2024 10:00 AM EDT Treatment [address] [phone] Rusty Fitzgerald, RN ON SITE Tendonitis, Achilles, right (Primary Dx) 07/02/2024 1:15 PM EDT Office Visit Orthopedic Surgery - [place] 250 175 [facility] 250 [place] [phone] Joe Lua, DPM Tendonitis, Achilles, right (Primary Dx); Cuauhtemoc's deformity of right heel 06/29/2024 11:30 AM EDT Treatment [address] [phone] Rusty Fitzgerald, RN ON SITE Tendonitis, Achilles, right (Primary Dx) 06/27/2024 10:00 AM EDT Treatment [address] [phone] Rusty Fitzgerald, RN ON SITE Tendonitis, Achilles, right (Primary Dx) 06/20/2024 11:00 AM EST Treatment [address] [phone] Rusty Fitzgerald, RN ON SITE Tendonitis, Achilles, right (Primary Dx) 06/13/2024 2:00 PM EST Treatment [address] [phone] Rusty Fitzgerald, RN ON SITE Tendonitis, Achilles, right (Primary Dx) 06/11/2024 12:30 PM EST Evaluation [address] [phone] JakobTeraShruti, PT Tendonitis, Achilles, right (Primary Dx) 06/11/2024 [address] [phone] Joe Lua DPM Med Refill 05/03/2024 8:15 AM EST Office Visit Orthopedic [address] [phone] Joe Lua DPM Tendonitis, Achilles, right (Primary Dx); Cuauhtemoc's deformity of right heel from Last 3 Months Surgical History Surgery Date Site/Laterality Comments BREAST LUMPECTOMY PROCEDURE: HISTORICAL BREAST LUMPECTOMY SHOULDER SURGERY PROCEDURE: HISTORICAL SHOULDER SURGERY Medical History Medical History Date Comments DVT (deep venous thrombosis) ([facility] V24, [facility] V28) DX:DVT (deep venous thrombos is) ([facility]) Factor V Leiden ([facility] V24) DX :Factor V Leiden ([facility]) Internal hemorrhoids DX:Internal hemorrhoids History of radiation therapy DX: History of radiation therapy Breast cancer ([facility] V24, [facility] V28) DX:Breast cancer ([facility]); COMMENT: left breast, dx 11/2020 s/p lumpectomy, SNL bx and radiation (no chemo) Family History Medical History Relation Name Comments Breast cancer Aunt maternal great aunt x3 Diabetes Maternal Grandfather Diabetes Paternal Grandmother Colon cancer Neg Hx Pancreatic cancer Neg Hx Relation Name Status Comments Aunt maternal great aunt Alive Maternal Grandfather Paternal Grandmother Social History Tobacco Use Types Packs/Day Years Used Date Smoking Tobacco: Never Smokeless Tobacco: Never Comments Unknown Sex and Gender Information Value Date Recorded Sex Assigned at Not on file Legal Sex Female 9:00 PM EST Gender Identity Not on file Sexual Orientation Not on file Obstetrics History Last Filed Vital Signs Vital Sign Reading Time Taken Comments Blood Pressure 120/62 08/10/2022 2:04 PM EDT Pulse 81 08/10/2022 2:04 PM EDT Temperature - - Respiratory Rate - - Oxygen Saturation - - Inhaled Oxygen Concentration - - Weight 76.2 kg (168 lb) 07/02/2024 1:04 PM EDT Height 162.6 cm (5' 4.02 ) 07/02/2024 1:04 PM ED T Body Mass Index 28.82 07/02/2024 1:04 PM EDT Plan of Treatment Upcoming Encounters Date Type Department Care Team (Late st Contact Info) Description 09/03/2024 2:00 PM EDT Office Visit Orthopedic Surgery - [place] [address] [phone] Joe Lua, DPM [address] [address] Health Maintenance Due Date Last Done Comments Breast Cancer Screening 1968 Hepatitis B Vaccines (1 of 3 - 19+ 3-dose series) 1987 Pneumococcal Vaccine: 50+ Years (1 of 2 - PCV) 1987 Pneumococcal Vaccine: Pediatrics (0 to 5 Years) and At-Risk Patients (6 to 64 Years) (1 of 2 - PCV) 1987 Cervical Cancer Screening: Pap Smear 1989 Zoster Vaccines (2 of 2) 07/19/2022 05/24/2022 Colorectal Cancer Screening: Colonoscopy 05/13/2023 Depression Screening 05/13/2023 HIV Screening 05/13/2023 Hepatitis C Screening 05/13/2023 Social Influencers of Health Screening 05/13/2023 COVID-19 Vaccine () 12/18/2023 04/09/2021, 08/20/2020, 07/30/2020 DTaP,Tdap,and Td Vaccines (2 - Td or Tdap) 01/14/2032 01/13/2022 Influenza Vaccine Completed 01/01/2024, , 02/03/2022, Additional [...] on patient's age to complete this topic MMR Vaccines Aged Out No longer eligi ble based on patient's age to complete this topic Meningococcal ACWY Vaccine Aged Out N o longer eligible based on patient's age to complete this topic Meningococcal B Vaccine Aged Out No l onger eligible based on patient's age to complete this topic RSV Immunization Patients Under 20 months Aged Out No longer eligible based on patient's age to complete this topic Varicella Vaccines Aged Out No longer eligible based on patient's age to complete this topic Insurance MEDICAID - [place] Care Teams Manager Administration Relationship Specialty Start Date End Date Tita Duke MD 230 [place] [address] PCP - General Scrap Iron Loader 05/03/24
--- OUTSIDE RECORDS SUMMARY | 2024-07-26 14:58 | XMS_ITS | Encounter Summary ---
Author Organization [employer] Address [address] [facility] 7t [place] [address] Care Team Providers Care Centrifugal Wax Molder Name Role Phone Tita Duke MD Primary Care Provider [phone] Reason for Visit * Reason Onset Date Comments Nurse Triage 01/04/2024 Encounter Details Date Type Department Care Team ([facility] st Contact Info) Description 01/04/2024 Telephone [facility] MEDICINE 230 [place], [place] [phone] Tita Duke MD [address] [place] [address] Nurse Triage Social History Tobacco Use Types Packs/Day Years [...] from getting things needed for daily living? Yes, it has kept me from medical appointments or getting medications. 08/03/2023 Utilities Answer Date Recorded In the past 12 months, has t he electric, gas, oil or water company threatened to shut off services in your home? No 02/14/2023 Depression Answer Date Recorded Patient Health Questionnaire-2 Score 0 08/18/2022 Internet Access Answer Date Recorded Internet Access Q1 Yes 01/06/2024 Internet Access Q2 Not on file 01/06/2024 Comments Unknown Sex and Gender Information Value Date Recorded Sex Assigned at Female 02/15/2022 10:37 AM EDT Legal Sex Female 10:37 AM EDT Gender Identity Female 02/15/2022 10:37 AM EDT Sexual Orientation Straight 02/15/2022 10 :37 AM EDT documented as of this encounter Miscellaneous Notes * Telephone Encounter - Prisca Deleon RN - 01/04/2024 10:08 AM EDT Triage call Pt reports pain continues on bump located back outside of right foot. Pt reports mainlyafter a long walk this will hurt. Pt does use elastic bandage with some good effect. Pt doesn't take any medication for pain advised tylenol/motrin as needed. Pt reports the bump is still slightly reddened and warm . Pt was seen in [facility] 12/12/23 and antibiotic keflex prescribed at the time. Pt did finish antibiotics as prescribed. Pt is advised to come to [facility] today for provider to see the area in question. Hours given open till 8pm today and 830am- 400pm , tuesday. Pt agrees with disposition .Home cares is reviewed advised to try heat or ice to area to see if that helps with pain and Pt agrees. Insurance is verified as active. Pt does have upcoming apt with PCP 01/16/24. Protocol Used: Foot Pain (Adult) Protocol-Based Disposition: See in Office or Video Visit within 2 Weeks Video visit not offered Positive Triage Question: * Foot pain is a chronic symptom (recurrent or ongoing AND lasting > 4 weeks) * All higher-acuity triage questions were negative Care Advice Discussed: * Reassurance and Education - Foot Pain * Reassurance and Education - Overuse * Foot Pain - Aggravating Factors * Pain Medicines * Pain Medicines - Extra Notes and Warnings * Reasons To Call Back - Swelling, redness, or fever occur - Severe pain not relieved by pain medicine - Pain lasts over 7 days - You become worse * Telephone Encounter - Jae Lake - 01/04/2024 9:44 AM EDT Symptom: Foot or Ankle Pain - Not From Injury Outcome: Schedule an urgent appointment (within 1 hour) or talk to a nurse or provider soon Reason: Severe pain now The caller accepted this outcome documented in this encounter Plan of Treatment Not on file documented as of this encounter Visit Diagnoses Not on filedocumented in this encounter Care Teams Centrifugal Wax Molder Relationship Specialty Start Date End Date Tita Duke MD [address] [place] [address] PCP - General Family Medicine 01/14/22 documented as of this encounter
--- OUTSIDE RECORDS SUMMARY | 2024-07-26 14:58 | XMS_ITS | Encounter Summary ---
Author Organization [employer] Address [address] [facility] 7t [place] [address] Care Team Providers Care Graphic Technician Name Role Phone Tita Duke MD Primary Care Provider [phone] Reason for Visit * Reason Onset Date Comments Medication Question 07/23/2024 Encounter Details Date Type Department Care Team ([facility] st Contact Info) Description 07/23/2024 Telephone [facility] MEDICINE 230 [place], [place] [phone] Tita Duke MD 230 [place], [place] [phone] Medication Question Social History Tobacco Use Types Packs/Day Years [...] encounter Miscellaneous Notes * Telephone Encounter - Josefina Little RN - 07/24/2024 1:05 PM EDT TC placed to patient [phone] in regards to below message. Patient verbalized understanding anddid not have any further questions/concerns. Patient to f/u PRN. * Telephone Encounter - Reza Alvarez - 07/23/2024 4:20 PM EDT Tc from pt requesting call back top verify if pcp wants them to take medication prescribed during most recent OV combined. Please contact pt at [phone]. documented in this encounter Plan of Treatment Not on file documented as of this encounter Visit Diagnoses Not on filedocumented in this encounter Care Teams Graphic Technician Relationship Specialty Start Date End Date Tita Duke MD 230 [place] [address] PCP - General Family Medicine 01/14/22 documented as of this encounter
== END 2024-07-26 12:30 | disposition home or self-care (01) ==
LOC: HO.US 12:29
PROVIDERS: PCP General Practice; Visit Provider General Practice
DX: R22.42 Localized swelling, mass and lump, left lower limb (principal)
CPT/HCPCS: 93971

== ENCOUNTER → 2024-07-26 12:43 | Outpatient (BNV) | payer MEDICAID, SELFPAY | PROVIDERS: PCP General Practice; Visit Provider Radiology Diagnostic Radiology | DX: M71.22 Synovial cyst of popliteal space [Baker], left knee (principal) | CPT/HCPCS: 93971 ==

== ENCOUNTER 2024-10-01 15:16 | Outpatient (REF) | payer MEDICAID, SELFPAY ==
--- NOTE | ~2024-10-01 | US_ITS ---
EXAMINATION: US PELVIS CLINICAL INFORMATION: Postmenopausal bleeding COMPARISON: 03/30/2022 TECHNIQUE: Ultrasound of the pelvis is performed using both transabdominal and transvaginal transducers along with Doppler. Transvaginal imaging is performed due to inadequate visualization transabdominally. FINDINGS: Uterus: The uterus is anteverted and measures 5.8 x 2.8 x 3.2 cm. The endometrial stripe thickness is 3 mm. There is fluid in the endometrial canal. The uterus demonstrates heterogeneous echogenicity, similar to the prior. Heterogeneous ill-defined region in the posterior body of the uterus measures 1.5 x 0.8 x 1.4 cm comprehensive 1.5 x 1.1 x 1.5 cm. Adnexa: Only the right ovary is visualized. There is normal color flow.. There is no pelvic ascites or fluid collection. Right ovary measures 1.3 x 1.9 x 1.2 cm. Left ovary: not demonstrated US/US pelvic and transvaginal IMPRESSION: The endometrial stripe thickness is 3 mm raising question of endometrial atrophy given the history of postmenopausal bleeding. Stable intramural uterine leiomyoma in the posterior body of the mid-uterus. Stable coarse echotexture of the uterus suggesting adenomyosis. Electronically signed by: Judson Wilkins MD 10/01/2024 04:22 PM EDT
--- OUTSIDE RECORDS SUMMARY | 2024-10-01 17:10 | XMS_ITS | Encounter Summary ---
Author Organization [facility] Address [address] [place] [address] Care Team Providers Care Technical Sme Name Role Phone Tita Duke MD Primary Care Provider [phone] Reason for Visit * Reason Onset Date Comments MRI 09/25/2024 Encounter Details Date Type Department Care Team (Late st Contact Info) Description 09/25/2024 Telephone Orthopedic Surgery [facility] [address] [phone] Joe Lua DPM [address] [address] MRI Social History Tobacco Use Types Packs/Day Years Used Date Smoking Tobacco: Never Smokeless Tobacco: Never Comments Unknown Sex and Gender Information Value Date Recorded Sex Assigned at Not on file Legal Sex Female 9:00 PM EST Gender Identity Not on file Sexual Orientation Not on file documented as of this encounter Progress Notes * Prisca Perales - 09/25/2024 9:16 AM EDT Patient is calling stating that she Declined having an MRI ordered after her last OV in August, but she was inquiring on if the order can be placed now., She does have a F/U Visit on 10/[address] Lua.Please advise. She can be reached @ [phone] Thanks. documented in this encounter Plan of Treatment Upcoming Encounters Date Type Department Care Team (Late st Contact Info) Description 10/04/2024 3:00 PM EDT Office Visit Orthopedic Surgery [facility] [address] [place] [address] Joe Lua, DPM 175 [facility] 250 [place] [address] documented as of this encounter Visit Diagnoses Not on filedocumented in this encounter Care Teams Technical Sme Relationship Specialty Start Date End Date Tita Duke MD [address] [place] [address] PCP - General Fence Machine Operator 05/03/24 documented as of this encounter
== END 2024-10-01 15:17 | disposition home or self-care (01) ==
LOC: HO.US 15:16
PROVIDERS: PCP General Practice; Visit Provider Student in an Organized Health Care Education/Training Program
DX: N95.0 Postmenopausal bleeding (principal)
CPT/HCPCS: 76830; 76856

== ENCOUNTER → 2024-10-01 15:19 | Outpatient (BNV) | payer MEDICAID, SELFPAY | PROVIDERS: PCP General Practice; Visit Provider Radiology Diagnostic Radiology | DX: N85.00 Endometrial hyperplasia, unspecified (principal); D25.1 Intramural leiomyoma of uterus | CPT/HCPCS: 76830; 76856 ==

== ENCOUNTER 2025-04-01 13:10 | Outpatient (REF) | payer MEDICAID, SELFPAY ==
--- NOTE | ~2025-04-01 | MM_ITS ---
EXAMINATION: MM SCREENING DIGITAL BREAST TOMOSYNTHESIS, BILATERAL CLINICAL INFORMATION: Screening. Asymptomatic. COMPARISON: Mammography: Comparison is made with available priors TECHNIQUE: Digital breast mammography with tomosynthesis is performed in both the craniocaudal and mediolateral oblique views along with computer-aided detection (CAD). FINDINGS: The breasts are heterogeneously dense, which may obscure small masses. Left post lumpectomy changes are stable. There are no significant masses, abnormal calcifications, or other abnormalities. MM/MM tomosynthesis screening BI IMPRESSION: No mammographic evidence of malignancy. ASSESSMENT: BI-RADS Category 2: Benign RECOMMENDATION: Routine annual mammography screening. 1 year F/U This examination should not preclude the clinical evaluation of a suspicious palpable abnormality. This patient's information was entered into a reminder system with a target due date for their next mammogram. Electronically signed by: Soledad Sandoval DO 04/03/2025 02:35 PM ANTONIO
--- OUTSIDE RECORDS SUMMARY | 2025-04-01 19:05 | XMS_ITS | Encounter Summary ---
Author Organization [facility] Address [address] [place] [address] Phone Care Team Providers Care Certified Rehabilitation Counselor Name Role Phone Edith Green CNP Primary Care Pr ovider Encounter Details Date Type Department Care Team (Late st Contact Info) Description 02/18/2021 Ancillary Orders [facility],Outside Imaging [address] [place] [address] System, Provider Not In, [place] [address] Social History Tobacco Use Types Packs/Day Years Used Date Smoking Tobacco: Never Assessed Comments Unknown Sex and Gender Information Value Date Recorded Sex Assigned at Not on file Legal Sex Female 3:44 PM EDT Gender Identity Not on file Sexual Orientation Not on file documented as of this encounter Plan of Treatment Not on file documented as of this encounter Results * US Breast Outside (No Interpretation) (12/12/2020 12:00 AM EDT) Narrative SYSTEMGENERATED, DOCUMENTATION - 02/18/2021 3:55 PM EDT This study is for PACS storage only and not for interpretation. us Provider Not In System PhD IMG OUTSIDE IMAGING W /OUT INTERPRETATION Final Result * Mammogram Outside (No Interpretation) (11/26/2020 12:00 AM EDT) Narrative SYSTEMGENERATED, DOCUMENTATION - 02/18/2021 3:53 PM EDT This study is for PACS storage only and not for interpretation. us Provider Not In System PhD IMG OUTSIDE IMAGING W /OUT INTERPRETATION Final Result * Mammogram Outside (No Interpretation) (05/09/2020 12:00 AM EST) Narrative SYSTEMGENERATED, DOCUMENTATION - 02/18/2021 3:52 PM EDT This study is for PACS storage only and not for interpretation. us Provider Not In System PhD IMG OUTSIDE IMAGING W /OUT INTERPRETATION Final Result documented in this encounter Visit Diagnoses Not on filedocumented in this encounter Care Teams Certified Rehabilitation Counselor Relationship Specialty Start Date End Date Edith Green CNP [address] [place] [address] [email or web address] PCP - General 01/23/21 documented as of this encounter Additional Source Comments The information contained in this document represents components of the legal health record. It is not the complete legal health record.[facility]
--- OUTSIDE RECORDS SUMMARY | 2025-04-01 19:05 | XMS_ITS | Clinical Summary ---
Author Organization 175 [facility] Address [address] [place] [address] Phone Care Team Providers Care Computer Analyst Name Role Phone Tita Duke MD Primary Care Provider [phone] Allergies No known active allergies Medications ascorbic acid (VITAMIN C) 500 mg tablet Take 1 tablet (500 mg total) by mouth 1 (one) time each day. Active aspirin (Vazalore) 81 mg capsule Take by mouth. Active cholecalciferol (VITAMIN D3) 1,250 mcg (50,000 unit) tablet Take by mouth. Active ferrous sulfate 325 mg (65 mg elemental [...] mg total) by mouth as needed. Active Active Problems Problem Noted Date Diagnosed [...] experiences any further bleeding. All questions answered. Surgical History Surgery Date Site/Laterality Comments BREAST LUMPECTOMY PROCEDURE: HISTORICAL BREAST LUMPECTOMY SHOULDER SURGERY PROCEDURE: HISTORICAL SHOULDER SURGERY Medical History Medical History Date Comments DVT (deep venous thrombosis) ([facility] V24, [facility] V28) DX:DVT (deep venous thrombos is) ([facility]) Factor V Leiden ([facility] V24) DX :Factor V Leiden ([facility]) Internal hemorrhoids DX:Internal hemorrhoids History of radiation therapy DX: History of radiation therapy Breast cancer ([facility] V24, [facility] V28) DX:Breast cancer ([facility]); COMMENT: left breast, dx 11/2020 s/p lumpectomy, [...] on file Sexual Orientation Not on file Last Filed Vital Signs Vital Sign Reading Time Taken Comments Blood Pressure 120/62 08/10/2022 2:04 PM EDT Pulse 81 08/10/2022 2:04 PM EDT Temperature - - Respiratory Rate - - Oxygen Saturation - - Inhaled Oxygen Concentration - - Weight 76.2 kg (168 lb) 09/03/2024 1:58 PM EDT Height 162.6 cm (5' 4.02 ) 09/03/2024 1:58 PM ED T Body Mass Index 28.82 09/03/2024 1:58 PM EDT Plan of Treatment Health Maintenance Due Date Last Done Comments Breast Cancer Screening 1968 Colorectal Cancer Screening: Colonoscopy 1968 Hepatitis B Vaccines (1 of 3 - 19+ 3-dose series) 1987 Pneumococcal Vaccine: 50+ Years (1 of 2 - PCV) 1987 Cervical Cancer Screening: Pap Smear 1989 Zoster Vaccines (2 of 2) 07/19/2022 05/24/2022 HIV Screening 05/13/2023 Hepatitis C Screening 05/13/2023 Social Influencers of Health Screening 05/13/2023 Depression Screening 04/18/2024 COVID-19 Vaccine (4 - season) 2024 04/09/2021, 08/20/2020, 07/30/2020 Influenza Vaccine (#1) 2024 , 01/02/2023, 02/03/2022, Additional history exists DTaP,Tdap,and Td Vaccines (2 - Td or Tdap) 01/14/2032 01/13/2022 RSV Immunization Adult Patients (1 - 1-dose 75+ series) 2043 HIB Vaccines Aged Out No longer eligi [...] to complete this topic Insurance MEDICAID - [place] Care Teams Computer Analyst Relationship Specialty Start Date End Date Tita Duke MD [address] [place] [address] PCP - General Waste Examiner 05/03/24
--- OUTSIDE RECORDS SUMMARY | 2025-04-01 19:05 | XMS_ITS | Encounter Summary ---
Author Organization [facility] Address [address] [place] [phone] Phone Care Team Providers Care Sales And Service Consultant Name Role Phone Edith Green CNP Primary Care Pr ovider Encounter Details Date Type Department Care Team (Late st Contact Info) Description 02/19/2021 Ancillary Orders [facility],Outside Imaging [address] [place] [address] System, Provider Not In, [place] [address] Social History Tobacco Use Types Packs/Day Years Used Date Smoking Tobacco: Passive Smo ke Exposure - Never Smoker Smokeless Tobacco: Never Comments:exposed to husbands second hand smoke Alcohol Use Standard Drinks/Week Comments Never 0 (1 standard drink = 0.6 oz pur e alcohol) Comments Unknown Sex and Gender Information Value Date Recorded Sex Assigned at Not on file Legal Sex Female 3:44 PM EDT Gender Identity Not on file Sexual Orientation Not on file documented as of this encounter Plan of Treatment Not on file documented as of this encounter Results * NM Other Outside (No Interpretation) (12/31/2020 12:05 AM EDT) Narrative SYSTEMGENERATED, DOCUMENTATION - 02/19/2021 11:20 AM EDT This study is for PACS storage only and not for interpretation. us Provider Not In System PhD IMG OUTSIDE IMAGING W /OUT INTERPRETATION Final Result documented in this encounter Visit Diagnoses Not on filedocumented in this encounter Care Teams Sales And Service Consultant Relationship Specialty Start Date End Date Edith Green CNP [address] [place] [phone] [email or web address] PCP - General 01/23/21 documented as of this encounter Additional Source Comments The information contained in this document represents components of the legal health record. It is not the complete legal health record.[facility]
--- OUTSIDE RECORDS SUMMARY | 2025-04-01 19:05 | XMS_ITS | Clinical Summary ---
Author Organization [facility] Address [address] [place], [place] [id number] Phone Care Team Providers Care Manager Statistical Programming Name Role Phone Edith Green CNP Primary Care Pr ovider Allergies No known active allergies Medications aspirin 81 MG EC tablet Take 81 mg by mouth daily. Active diclofenac sodium (VOLTAREN) 25 MG EC tabletIndications :patient using for 2 more days dental procedure . dental implants. Take 25 mg by mouth 2 (two) times a day. Indications: patient using for 2 more days dental procedure . dental implants. Active raloxifene (EVISTA) 60 mg tablet Take 60 mg by mouth daily. Active enoxaparin (LOVENOX) 30 mg/0.3 mL Syrg subcutaneous syringe 20 mg every 12 (twelve) hours as needed (when traveling). Active silver sulfADIAZINE (SILVADENE) 1 % creamIndications: Malignant neoplasm of upper-outer quadrant of left breast in female, estrogen receptor positive Apply topically 2 (two) times a day. 400 g 1 Active cholecalciferol (VITAMIN D3) 25 MCG (1,000 unit) tablet Take 1,000 Units by mouth daily. Active Active Problems Problem Noted Date Diagnosed Date Malignant neoplasm of upper- outer quadrant of left breast in female, estrogen receptor positive 03/10/2021 Family History Medical History Relation Comments Stomach cancer Brother Clotting disorder Father Breast cancer Maternal Aunt Diabetes Maternal Grandmother Diabetes Paternal Grandmother Relation Status Comments Brother Other Cynthiaida reports sh e isnt sure if brothers cancer was gastric. Father Maternal Aunt Maternal Grandmother Paternal Grandmother Social History Tobacco Use Types Packs/Day Years Used Date Smoking Tobacco: Passive Smo ke Exposure - Never Smoker Smokeless Tobacco: Never Comments:exposed to husbands second hand smoke Alcohol Use Standard Drinks/Week Comments Never 0 (1 standard drink = 0.6 oz pur e alcohol) Education Answer Date Recorded Are you interested in more education? Not on diana e 08/14/2022 Are you concerned about learning? Not on file 08/14/2022 No 08/14/2022 No 08/14/2022 Digital Access Answer Date Recorded No 09/12/2022 No 09/12/2022 No 09/12/2022 Reliable internet access at home? Not on file 09/12/2022 Device with a working camera? Not on file Comments Unknown Sex and Gender Information Value Date Recorded Sex Assigned at Not on file Legal Sex Female 3:44 PM EDT Gender Identity Not on file Sexual Orientation Not on file Last Filed Vital Signs Vital Sign Reading Time Taken Comments Blood Pressure 136/83 03/31/2021 3:00 PM EST Pulse 76 03/31/2021 3:00 PM EST Temperature - - Respiratory Rate 18 03/31/2021 3:00 PM EST Oxygen Saturation 97% 03/31/2021 3:00 PM EST Inhaled Oxygen Concentration - - Weight 76.7 kg (169 lb) 03/17/2021 3:07 PM EST Height - - Body Mass Index - - Plan of Treatment Health Maintenance Due Date Last Done Comments Adult Td,Tdap Booster 1968 LIPID PANEL 1968 DEPRESSION SCREENING 1980 HEPATITIS C SCREENING 1986 HIV ONE-TIME SCREENING (18-65 YEARS) 1986 PNEUMOCOCCAL VACCINES (50+ years) (1 of 2 - PCV) 1987 ZOSTER VACCINES (1 of 2) 1987 PAP SMEAR 1989 COLOGUARD 2013 COLONOSCOPY 2013 COLORECTAL CANCER SCREENING 2013 FIT TEST 2013 FOBT 2013 SIGMOIDOSCOPY 2013 VIRTUAL COLONOSCOPY 2013 MAMMOGRAM 12/31/2022 12/31/2020, 11/17, 11/26/2020, Additional history exists INFLUENZA VACCINE (#1) 2024 01/08/2020, 2018 COVID-19 VACCINE (3 - 2024- season) 2024 08/20/2020, 07/30/2020 RSV VACCINE (1 - 1-dose 75+ series) 2043 SMOKING STATUS SCREENING (Once After 26 Yrs) Completed 02/19/2021 HEPATITIS A VACCINES Aged Out No long er eligible based on patient's age to complete this topic HIB VACCINES Aged Out No longer eligi ble based on patient's age to complete this topic MENINGOCOCCAL VACCINES (ACWY) Aged Out No longer eligible based on patient's age to complete this topic MENINGOCOCCAL VACCINES (B) Aged Out N o longer eligible based on patient's age to complete this topic Medical Devices Implanted Type 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 us Provider Not In System PhD IMG OUTSIDE IMAGING W /OUT INTERPRETATION Final Result from Last 3 Months or Most Recently Relevant to Health Maintenance Insurance [facility] NON NSPG PCP [facility] NON NSPG PCP [employer]LL[employer] NON NSPG PCP S[employer] WELL[employer] NON NSPG PCP S[employer] CONNE[employer] WELLS[employer] NON NSPG PCP S[employer] CONNECTORCARE WELLSENSE NON NSPG PCP [employer] CONNECTORCARE WELLSENSE NON NSPG PCP SIL[employer] CONNECTORCARE WELLSENSE NON NSPG PCP S[facility] Care Teams Manager Statistical Programming Relationship Specialty Start Date End Date Edith Green CNP [address] [place] [phone] [email or web address] PCP - General 01/23/21 Additional Source Comments The information contained in this document represents components of the legal health record. It is not the complete legal health record.[facility]
--- OUTSIDE RECORDS SUMMARY | 2025-04-01 19:05 | XMS_ITS | Encounter Summary ---
Author Organization [facility] Address [address] [place] [phone] Phone Care Team Providers Care Celery Wrapper Name Role Phone Edith Green CNP Primary Care Pr ovider Encounter Details Date Type Department Care Team (Late st Contact Info) Description 02/18/2021 Ancillary Orders [facility],Outside Imaging [address] [place] [address] System, Provider Not In, [place] [address] Social History Tobacco Use Types Packs/Day Years Used Date Smoking Tobacco: Never Assessed Comments Unknown Sex and Gender Information Value Date Recorded Sex Assigned at Not on file Legal Sex Female 3:44 PM EDT Gender Identity Not on file Sexual Orientation Not on file documented as of this encounter Plan of Treatment Not on file documented as of this encounter Results * Mammogram Outside (No Interpretation) (12/31/2020 12:00 AM EDT) Narrative SYSTEMGENERATED, DOCUMENTATION - 02/18/2021 4:31 PM EDT This study is for PACS storage only and not for interpretation. us Provider Not In System PhD IMG OUTSIDE IMAGING W /OUT INTERPRETATION Final Result * Mammogram Outside (No Interpretation) (12/12/2020 12:05 AM EDT) Narrative SYSTEMGENERATED, DOCUMENTATION - 02/18/2021 4:30 PM EDT This study is for PACS storage only and not for interpretation. us Provider Not In System PhD IMG OUTSIDE IMAGING W /OUT INTERPRETATION Final Result * Mammogram Outside (No Interpretation) (05/29/2020 12:00 AM EST) Narrative SYSTEMGENERATED, DOCUMENTATION - 02/18/2021 4:30 PM EDT This study is for PACS storage only and not for interpretation. us Provider Not In System PhD IMG OUTSIDE IMAGING W /OUT INTERPRETATION Final Result documented in this encounter Visit Diagnoses Not on filedocumented in this encounter Care Teams Celery Wrapper Relationship Specialty Start Date End Date Edith Green CNP [address] [place] [address] [email or web address] PCP - General 01/23/21 documented as of this encounter Additional Source Comments The information contained in this document represents components of the legal health record. It is not the complete legal health record.[facility]
== END 2025-04-01 13:11 | disposition home or self-care (01) ==
LOC: HO.MAMMO 13:10
PROVIDERS: PCP General Practice; Visit Provider General Practice
DX: Z12.31 Encounter for screening mammogram for malignant neoplasm of breast (principal)
CPT/HCPCS: 77063; 77067

== ENCOUNTER → 2025-04-01 13:30 | Outpatient (BNV) | payer MEDICAID, SELFPAY | PROVIDERS: PCP General Practice; Visit Provider Internal Medicine | DX: Z12.31 Encounter for screening mammogram for malignant neoplasm of breast (principal) | CPT/HCPCS: 77063; 77067 ==